=== PATIENT | male | born 1980 | race Caucasian/White ===

== ENCOUNTER 2017-03-29 18:18 | Emergency (ER) | payer OTHER ==
[~2017-03-29] VITALS: Ht 175.3 cm; Wt 91.8 kg
[~2017-03-29 18:18] MED LIST: ACET500T68 PO; IBUP400T18 PO
[2017-03-29 18:35] VITALS: BP 140/99
--- NOTE | 2017-03-29 18:36 | ED.ADGEN ---
Past History Past Medical History: No Pertinent History Past Surgical History: No Surgical History Alcohol Use: None Drug Use: None Adult General Chief Complaint Chief Complaint Finger laceration [facility] HPI Patient is a 37 year old male who presents with small laceration of the third finger on the right hand. He reached his hand in a box of fluorescent light bulbs and when the bulge is broken and received a laceration on the lateral aspect of his third digit of his right hand. He states his tetanus shot was updated 2015. Review of Systems Review of Systems Constitutional: Denies fever or chills [] Eyes: Denies change in visual acuity, redness, or eye pain [] HENT: Denies nasal congestion or sore throat [] Respiratory: Denies cough or shortness of breath [] Cardiovascular: No additional information not addressed in HPI [] GI: Denies abdominal pain, nausea, vomiting, bloody stools or diarrhea [] : Denies dysuria or hematuria [] Musculoskeletal: Denies back pain or joint pain [] Integument: Denies rash or skin lesions, positive for laceration of the right third digit of hand Neurologic: Denies headache, focal weakness or sensory changes [] Endocrine: Denies polyuria or polydipsia [] Allergies Allergies Allergies Coded Allergies Type Severity Reaction Last Updated Verified pertussis vaccine,fluid Allergy Unknown 09/01/14 No Physical Exam Physical Exam Constitutional: Well developed, well nourished, no acute distress, non-toxic appearance. [] HENT: Normocephalic, atraumatic, bilateral external ears normal, oropharynx moist, no oral exudates, nose normal. [] Eyes: PERRLA, EOMI, conjunctiva normal, no discharge. [] Neck: Normal range of motion, no tenderness, supple, no stridor. [] Cardiovascular:Heart rate regular rhythm, no murmur [] Lungs & Thorax: Bilateral breath sounds clear to auscultation [] Abdomen: Bowel sounds normal, soft, no tenderness, no masses, no pulsatile masses. [] Skin: Warm, dry, no erythema, no rash. 1 cm laceration on the lateral aspect of the third digit on the right hand Back: No tenderness, no CVA tenderness. [] Extremities: No tenderness, no cyanosis, no clubbing, ROM intact, no edema. [] Neurologic: Alert and oriented X 3, normal motor function, normal sensory function, no focal deficits noted. [] Psychologic: Affect normal, judgement normal, mood normal. [] Current Patient Data Vital Signs Vital Signs Date Time Temp Pulse Resp B/P (MAP) Pulse Ox O2 Delivery O2 Flow Rate FiO2 03/29/17 18:35 98.1 80 20 96 Room Air EKG EKG [] Radiology/Procedures Radiology/Procedures 3 views of the right hand did not show any foreign bodies, Fractures, dislocations, as interpreted by me. Course & Med Decision Making Course & Med Decision Making Pertinent Labs and Imaging studies reviewed. (See chart for details) She presented with a laceration. It was explored for foreign bodies and x-ray was obtained and do not appreciate any foreign bodies, his tetanus was updated within the last 5 years. Wound was closed with Dermabond patient is being discharged home with return precautions. Final Impression Final Impression Laceration of finger Problems: Dragon Disclaimer Dragon Disclaimer This electronic medical record was generated, in whole or in part, using a voice recognition dictation system. Laceration Repair Lac Repair Indication: S ratio repair Procedure: The patient was placed in the appropriate position and the area was then hibbaclens. The laceration was Dermabond. The wound area was then dressed with band aid. Total repaired wound length: 1 cm. The patient tolerated the procedure well. Complications: No complications. DEBBI QUINTANILLA MD Mar 29, 2017 18:36
--- NOTE | 2017-03-30 08:18 | RAD ---
Right finger radiographs History: Laceration to the right middle finger. Comparison: None. Findings: PA view of the right hand. Oblique and lateral views of the third digit (middle finger). No radiopaque foreign body is identified. No acute fracture or dislocation is seen. There is a small well-corticated ossific density along the volar aspect of the third middle phalangeal base, could represent old avulsion fracture. Impression: 1. No definite acute osseous abnormality identified. 2. Probable old avulsion fracture of the base of the third middle phalanx. 3. No radiopaque foreign body is seen.
== END 2017-03-29 19:13 | disposition home or self-care (01) ==
LOC: ER 18:18
DX: S61.212A Laceration without foreign body of right middle finger without damage to nail, initial encounter (principal); Z88.7 Allergy status to serum and vaccine; W25.XXXA Contact with sharp glass, initial encounter; Y93.89 Activity, other specified; Y99.8 Other external cause status; Y92.89 Other specified places as the place of occurrence of the external cause
CPT/HCPCS: 12001; 73140; 99284-25

== ENCOUNTER 2017-07-25 19:51 | Emergency (ER) | payer OTHER ==
[~2017-07-25] VITALS: Ht 172.7 cm; Wt 97.5 kg
[2017-07-25 19:52] VITALS: BP 139/100
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
[2017-07-26 22:08] LABS: HCV ANTIBODY <0.1 s/co ratio (0.0-0.9); HEP A IGM ABDY Negative (Negative)
== END 2017-07-25 20:32 | disposition home or self-care (01) ==
LOC: ER 19:51
DX: S61.231A Puncture wound without foreign body of left index finger without damage to nail, initial encounter (principal); Z77.21 Contact with and (suspected) exposure to potentially hazardous body fluids; Z88.7 Allergy status to serum and vaccine; W46.0XXA Contact with hypodermic needle, initial encounter; Y93.89 Activity, other specified; Y99.0 Civilian activity done for income or pay; Y92.89 Other specified places as the place of occurrence of the external cause
CPT/HCPCS: 36415; 80074; 86701; 86702; 86703; 87535; 99284

== ENCOUNTER 2018-02-27 20:23 | Emergency (ER) | payer OTHER ==
[~2018-02-27] VITALS: Ht 172.7 cm; Wt 91.8 kg
[2018-02-27] MEDS ORDERED: IBUPROFEN 800 MG TABLET. PO ONE (22:00)
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
[2018-02-27 23:40] VITALS: BP 159/91
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
[2018-02-28] MEDS ORDERED: ACETAMINOPHEN/CODEINE 300/30MG 4TABLET STARTPACK. PO ONE
--- NOTE | 2018-02-28 14:58 | RAD ---
KNEE LEFT 3V, HAND RIGHT 3V, ELBOW LEFT 2V History: INJURY, LEFT KNEE PAIN. Pain at the fifth digit of right hand. Elbow pain. Comparison: None are available 3 view left knee No acute fracture. No bone destruction. No dislocation. IMPRESSION: No acute fracture or dislocation. 3 view left elbow No evidence of acute fracture. No bone destruction. Joint spaces are intact. No significant soft tissue abnormality. IMPRESSION: No evidence of acute fracture or dislocation. 3 view left hand No evidence of an acute fracture. No aggressive bone destruction. No evidence of dislocation. Possible old fracture deformity of the fifth metacarpal. IMPRESSION: No acute fracture or dislocation. Electronically signed by: Benito Mota MD (02/28/2018 2:54 PM) [facility]
== END 2018-02-27 23:58 | disposition home or self-care (01) ==
LOC: ER 20:23
DX: S09.90XA Unspecified injury of head, initial encounter (principal); S83.92XA Sprain of unspecified site of left knee, initial encounter; S60.222A Contusion of left hand, initial encounter; S50.02XA Contusion of left elbow, initial encounter; E78.00 Pure hypercholesterolemia, unspecified; Z88.7 Allergy status to serum and vaccine; Y04.0XXA Assault by unarmed brawl or fight, initial encounter; Y93.89 Activity, other specified; Y99.8 Other external cause status; Y92.89 Other specified places as the place of occurrence of the external cause
CPT/HCPCS: 29505; 70450; 70486; 73070; 73130; 73562; 99284

== ENCOUNTER 2018-10-23 19:20 | Inpatient (IN) | payer BC, OTHER ==
[~2018-10-23] VITALS: Ht 172.7 cm; Wt 105.8 kg
--- NOTE | 2018-10-23 19:41 | PHYS DOC ---
Past History Past Medical History: Anxiety, High Cholesterol, Other Past Surgical History: Other Alcohol Use: Rarely Drug Use: None Adult General Chief Complaint Chief Complaint: CHEST PAIN HPI HPI 38-year-old male presents with chest pain. The patient has had intermittent chest pain described as a central pressure off and on all day. He had an episode at 1700 that was a 10 out of 10 pain. He is unsure excited how long it lasted but it improved over time. He second episode of equal intensity at 1800. It is now 1930 and the patient states his pain is a 5 out of 10. He did not take an aspirin at home. He is not on nitroglycerin. He was also mildly short of breath and had some nausea. The patient is supposed to be getting scheduled for a stress test with his PCP, but has not been scheduled yet. His last stress test was in when he 13 and it was reported to be unremarkable. Patient denies fever or chills. He has been feeling well other than this episode. Review of Systems Review of Systems Constitutional: Denies fever or chills [] Eyes: Denies change in visual acuity, redness, or eye pain [] HENT: Denies nasal congestion or sore throat [] Respiratory: shortness of breath [] Cardiovascular: No additional information not addressed in HPI [] GI: Nausea. Denies abdominal pain, vomiting, bloody stools or diarrhea [] : Denies dysuria or hematuria [] Musculoskeletal: Denies back pain or joint pain [] Integument: Denies rash or skin lesions [] Neurologic: Denies headache, focal weakness or sensory changes [] Endocrine: Denies polyuria or polydipsia [] All other systems were reviewed and found to be within normal limits, except as documented in this note. Current Medications Current Medications Current Medications Medications (Trade) Dose Ordered Sig/Navdeep Start Time Stop Time Status Last Admin Dose Admin Aspirin (Children'S Aspirin) 324 mg 1X ONCE 10/23/18 19:45 10/23/18 19:46 UNV Allergies Allergies Allergies Coded Allergies Type Severity Reaction Last Updated Verified pertussis vaccine,fluid Allergy Unknown 09/01/14 No Physical Exam Physical Exam Constitutional: Well developed, well nourished, no acute distress, non-toxic appearance. [] HENT: Normocephalic, atraumatic, bilateral external ears normal, oropharynx moist, no oral exudates, nose normal. [] Eyes: PERRLA, EOMI, conjunctiva normal, no discharge. [] Neck: Normal range of motion, no tenderness, supple, no stridor. [] Cardiovascular:Heart rate regular rhythm, no murmur [] Lungs & Thorax: Bilateral breath sounds clear to auscultation [] Abdomen: Bowel sounds normal, soft, no tenderness, no masses, no pulsatile masses. [] Skin: Warm, dry, no erythema, no rash. [] Back: No tenderness, no CVA tenderness. [] Extremities: No tenderness, no cyanosis, no clubbing, ROM intact, no edema. [] Neurologic: Alert and oriented X 3, normal motor function, normal sensory function, no focal deficits noted. [] Psychologic: Affect normal, judgement normal, mood normal. [] Current Patient Data Vital Signs Vital Signs Date Time Temp Pulse Resp B/P (MAP) Pulse Ox O2 Delivery O2 Flow Rate FiO2 10/23/18 19:20 98.5 64 20 99 Room Air EKG EKG Sinus rhythm, rate 61, normal axis, no ST elevations or depressions.[] Radiology/Procedures Radiology/Procedures [] Impressions: Preliminary interpretation: Chest x-ray with no acute findings. EXAM: Chest, single view. HISTORY: Chest pain. COMPARISON: None. FINDINGS: A frontal view of the chest is obtained. There is no infiltrate, pleural effusion or pneumothorax. The heart is normal in size. IMPRESSION: No acute pulmonary finding. Electronically signed by: Geovanna Fernandez MD (10/23/2018 10:31 PM) [facility] DICTATED AND SIGNED BY: GEOVANNA FERNANDEZ MD DATE: 10/23/18 279 CC: MANI HAGAN DO; LUIS FELIPE SCHWARTZ; JOSUE ALCALA MD Course & Med Decision Making Course & Med Decision Making Pertinent Labs and Imaging studies reviewed. (See chart for details) Patient's chest x-ray is unremarkable. His labs are unremarkable except for an elevated glucose of 231. His troponin is negative. His EKG is unremarkable. Given the patient's story and what appears to be a progressive nature of chest pain for several months, I believe it is most prudent to admit the patient. I discussed this with Dr. Alcala and he has accepted the patient for admission. I discussed this with the patient and he is in agreement. [] Dragon Disclaimer Dragon Disclaimer This electronic medical record was generated, in whole or in part, using a voice recognition dictation system. Departure Departure: Referrals: LUIS FELIPE SCHWARTZ (PCP) MANI HAGAN DO Oct 23, 2018 19:40
[2018-10-23] MEDS ORDERED: ASPIRIN 81 MG TAB.CHEW PO ONE (19:45)
[2018-10-23 19:56] LABS: BASO % 1 % (0-3); EOS % 1 % (0-3); HEMATOCRIT 47.2 % (39.0-53.0); HEMOGLOBIN 16.4 g/dL (13.0-17.5); LYMPH # 1.3 x10^3/uL (1.0-4.8); LYMPH % 29 % (24-48); MEAN CORPUSCULAR HEMOGLOBIN 31 pg (25-35); MEAN CORPUSCULAR HGB CONC 35 g/dL (31-37); MEAN CORPUSCULAR VOLUME 89 fL (79-100); MONO # 0.6 x10^3/uL (0.0-1.1); MONO % 14 % (0-9); NEUT # 2.5 x10^3uL (1.8-7.7); NEUT % 56 % (31-73); PLATELET COUNT 197 x10^3/uL (140-400); RED BLOOD COUNT 5.32 x10^6/uL (4.30-5.70); RED CELL DISTRIBUTION WIDTH 12.7 % (11.5-14.5); WHITE BLOOD COUNT 4.4 x10^3/uL (4.0-11.0)
[2018-10-23 20:14] LABS: ALBUMIN/GLOBULIN RATIO 1.1 (1.0-1.7); CALCIUM 8.5 mg/dL (8.5-10.1); GFR 82.8; POTASSIUM 3.5 mmol/L (3.5-5.1); TOTAL BILIRUBIN 0.6 mg/dL (0.2-1.0); TOTAL PROTEIN 7.5 g/dL (6.4-8.2)
[2018-10-23] MEDS ORDERED: MORPHINE SULFATE 2 MG/ML DISP.SYRIN. IV PRN (20:45)
[2018-10-23] MEDS ORDERED: NITROGLYCERIN SUBLINGUAL 0.4 MG BOTTLE OF 25. SL PRN (20:45)
[2018-10-23] MEDS ORDERED: ONDANSETRON PF 4 MG/2 ML VIAL. IV PRN (20:45)
[2018-10-23] MEDS ORDERED: IV NORMAL SALINE 1,000ML 1,000 ML IV ONE (21:15)
--- NOTE | 2018-10-23 22:15 | NUR ---
Admission: The patient, ERIC ESPINAL, 38 y/o, M admitted by JOSUE ALBERT MD, was given written information regarding hospital policies, unit procedures and contact persons. Pt arrived to room 113 via [facility], accompanied by [facility] and nursing sup. Pt self-transferred from [place] to bed, steady gait noted. Pt A/Ox3, reports mid-sternal CP began today around 1130 and continued intermittently through this evening, describes as a pressure/squeezing. Around 1730, began radiating down left arm with numbness to fingers along with increased SOA, so pt left work and drove to the ED for treatment. Pt reports he has had similar episodes in the past and was scheduled for an outpatient stress test but had to cancel and has yet to reschedule. Pt lives in [place], but works in town at the local [employer]. Pt received nitro SL x1 in ED, pain resolved. Pt now c/o mid-sternal CP returning, rates 7/10. Denies current SOA. Given PRN morphine per order. Placed on telemetry, showing sinus iftikhar with HR in the upper 50's. Will consult cardiology in AM. Discussed POC with patient and felix, who is at bedside, both V/U. Call light in reach. Valuables were checked and logged. Left in room with patient.
[2018-10-23 22:24] VITALS: BP 121/75
--- NOTE | 2018-10-23 22:34 | RAD ---
EXAM: Chest, single view. HISTORY: Chest pain. COMPARISON: None. FINDINGS: A frontal view of the chest is obtained. There is no infiltrate, pleural effusion or pneumothorax. The heart is normal in size. IMPRESSION: No acute pulmonary finding. Electronically signed by: Geovanna Gutiérrez MD (10/23/2018 10:31 PM) [facility]
[2018-10-23] MEDS ORDERED: PRAV20TA2 PO (22:52)
[2018-10-24] VITALS (7 sets, daily range): BP systolic 112–146; BP diastolic 70–94
[2018-10-24] MEDS ORDERED: MAG HYDROX/AL HYDROX/SIMETH 30 ML ORAL.SUSP PO ONE (02:00)
[2018-10-24 07:31] LABS: HEMATOCRIT 46.4 % (39.0-53.0); HEMOGLOBIN 15.9 g/dL (13.0-17.5); RED BLOOD COUNT 5.19 x10^6/uL (4.30-5.70); RED CELL DISTRIBUTION WIDTH 12.9 % (11.5-14.5); WHITE BLOOD COUNT 4.5 x10^3/uL (4.0-11.0)
[2018-10-24 07:40] LABS: CALCIUM 7.9 mg/dL (8.5-10.1); CREATININE 0.9 mg/dL (0.7-1.3); GFR 93.5
--- NOTE | 2018-10-24 08:50 | NUR ---
NURSING NOTE CONSULT CONSULT CALLED TO DR HOU OFFICE [phone]. CARLOS IS HERE IN THE BUILDING. FREDA SWAIN .
--- NOTE | 2018-10-24 08:55 | PDOC2 ---
CONSULT Date of Admission DATE: 10/24/18 TIME: 08:48 Reason for Consult: cp, bradycardia Problem List Problems Medical Problems: (1) Chest pain Status: Acute (2) Hyperglycemia Status: Acute History of Present Illness Mr Salvador is a 38 year old male who presents with complaints of chest pain that started while watching TV yesterday afternoon. He describes midsternal pain lasting about 5 minutes and occurring off and on all afternoon. He denies any radiation but does report associated nausea. He reports dyspnea with walking up stairs. He denies any change in symptoms with deep inspiration, position or exertion. He reports having had a stress test that was normal about 3 years ago. He also reports seeing his PCP in May for some left sided chest pain that was the same in quality and having a stress test ordered at [facility] which he has not yet completed. He reports occasional lightheadedness on standing but denies any pre syncope or syncope. He denies any normal dyspnea on exertion and does PT testing for his job at the [employer] every 6 months. He denies any palpitations but has been noted to be bradycardic since on telemetry. He denies any congestive symptoms but does report a dry, non productive cough for a few days. He denies fever or chills. Cardiovascular: HTN (borderline), hyperipidemia Pulmonary: No pertinent hx GI: No pertinent hx, Other (gallstones) Heme/Onc: No pertinent hx Hepatobiliary: No pertinent hx Psych: Anxiety, Other (ADHD) Musculoskeletal: No pertinent hx Rheumatologic: No pertinent hx Infectious disease: No pertinent hx ENT: No pertinent hx Renal/: No pertinent hx Endocrine: No pertinent hx Dermatology: No pertinent hx Past Surgical History breast reduction, vasectomy Family History premature coronary disease and CVA Social History non smoker, no significant ETOH, no illicit drugs Current Medications Current Medications Aspirin (Children'S Aspirin) 324 mg 1X ONCE PO Last administered on at 19:41; Start 10/23/18 at 19:45; Stop 10/23/18 at 19:51; Status DC Ondansetron HCl (Zofran) 4 mg PRN Q4HRS PRN IV NAUSEA/VOMITING; Start at 20:45; Stop 10/24/18 at 20:44 Morphine Sulfate (Morphine 2mg Syringe) 2 mg PRN Q2HR PRN IV PAIN Last administered on 10/23/18at 23:10; Start 10/23/18 at 20:45; Stop 10/24/18 at 20 :44 Nitroglycerin (Nitrostat) 0.4 mg PRN Q5MIN PRN SL CHEST PAIN Last administered on 10/23/18at 21:19; Start 10/23/18 at 20:45; Stop 10/24/18 at 20:44 Sodium Chloride 1,000 ml @ 1,000 mls/hr 1X ONCE IV Last administered on 10/23at 21:20; Start 10/23/18 at 21:15; Stop 10/23/18 at 22:14; Status DC Al Hydroxide/Mg Hydroxide (Mylanta Plus Xs) 30 ml 1X ONCE PO Last administered on 10/24/18at 01:32; Start 10/24/18 at 02:00; Stop 10/24/18 at 02 :02; Status DC Active Scripts Active Reported Pravastatin Sodium 20 Mg Tablet 20 Mg PO HS Allergies: Coded Allergies: pertussis vaccine,fluid (Unverified Allergy, Unknown, 09/01/14) Review of System as per HPI or negative General: Alert, Oriented X3, Cooperative, No acute distress HEENT: Atraumatic, EOMI, Mucous membr. moist/pink, Other (No carotid bruits) Lungs: Clear to auscultation, Normal air movement Heart: Normal S1, Normal S2, Other (bradycardic, no significant murmurs, no gallops, clicks or rubs) Abdomen: Normal bowel sounds, Soft, No tenderness Extremities: No cyanosis, No edema, Normal pulses Skin: No rashes, No breakdown Neuro: Normal speech, Strength at 5/5 X4 ext Psych/Mental Status: Mental status NL, Mood NL VITALS Vital Signs Date Time Temp Pulse Resp B/P (MAP) Pulse Ox O2 Delivery O2 Flow Rate FiO2 10/24/18 07:40 Room Air 10/24/18 01:12 97.8 61 18 135/79 (97) 98 Labs Laboratory Tests Test 10/23/18 19:35 10/23/18 23:45 10/24/18 02:40 10/24/18 07:10 White Blood Count 4.4 x10^3/uL (4.0-11.0) 4.5 x10^3/uL (4.0-11.0) Red Blood Count 5.32 x10^6/uL (4.30-5.70) 5.19 x10^6/uL (4.30-5.70) Hemoglobin 16.4 g/dL (13.0-17.5) 15.9 g/dL (13.0-17.5) Hematocrit 47.2 % (39.0-53.0) 46.4 % (39.0-53.0) Mean Corpuscular Volume 89 fL (79-100) 89 fL (79-100) Mean Corpuscular Hemoglobin 31 pg (25-35) 31 pg (25-35) Mean Corpuscular Hemoglobin Concent 35 g/dL (31-37) 34 g/dL (31-37) Red Cell Distribution Width 12.7 % (11.5-14.5) 12.9 % (11.5-14.5) Platelet Count 197 x10^3/uL (140-400) 194 x10^3/uL (140-400) Neutrophils (%) (Auto) 56 % (31-73) Lymphocytes (%) (Auto) 29 % (24-48) Monocytes (%) (Auto) 14 % (0-9) Eosinophils (%) (Auto) 1 % (0-3) Basophils (%) (Auto) 1 % (0-3) Neutrophils # (Auto) 2.5 x10^3uL (1.8-7.7) Lymphocytes # (Auto) 1.3 x10^3/uL (1.0-4.8) Monocytes # (Auto) 0.6 x10^3/uL (0.0-1.1) Eosinophils # (Auto) 0.0 x10^3/uL (0.0-0.7) Basophils # (Auto) 0.0 x10^3/uL (0.0-0.2) Sodium Level 140 mmol/L (136-145) 140 mmol/L (136-145) Potassium Level 3.5 mmol/L (3.5-5.1) 4.0 mmol/L (3.5-5.1) Chloride Level 103 mmol/L (98-107) 106 mmol/L (98-107) Carbon Dioxide Level 24 mmol/L (21-32) 23 mmol/L (21-32) Anion Gap 13 (6-14) 11 (6-14) Blood Urea Nitrogen 19 mg/dL (8-26) 18 mg/dL (8-26) Creatinine 1.0 mg/dL (0.7-1.3) 0.9 mg/dL (0.7-1.3) Estimated GFR (Cockcroft-Gault) 82.8 93.5 BUN/Creatinine Ratio 19 (6-20) Glucose Level 231 mg/dL (70-99) 202 mg/dL (70-99) Calcium Level 8.5 mg/dL (8.5-10.1) 7.9 mg/dL (8.5-10.1) Total Bilirubin 0.6 mg/dL (0.2-1.0) Aspartate Amino Transf (AST/SGOT) 24 U/L (15-37) Alanine Aminotransferase (ALT/SGPT) 43 U/L (16-63) Alkaline Phosphatase 92 U/L (46-116) Troponin I Quantitative < 0.017 ng/mL (0-0.055) < 0.017 ng/mL (0-0.055) < 0.017 ng/mL (0-0.055) Total Protein 7.5 g/dL (6.4-8.2) Albumin 4.0 g/dL (3.4-5.0) Albumin/Globulin Ratio 1.1 (1.0-1.7) Images EKG - sinus rhythm, 1st degree AVB, leftward axis, no acute ischemic changes CXR - IMPRESSION: No acute pulmonary finding. Assessment/Plan 1. chest pain, atyupical - Mau negative, EKG without acute changes. check echo , check lipids, aspirin daily, no beta desmond secondary to bradycardia 2. bradycardia - 6 min walk for chronotropic response, check TSH 3. hypertension stage 1, - check echo. add ACEI if pressure remains elevated or LVH on echo 4. hyperlipidemia - check lipids, add statin as indicated 5. hyperlipidemia - check AIC 6. Anxiety - per pcp CARLOS GAXIOLA APRN Oct 24, 2018 08:55
--- NOTE | 2018-10-24 10:47 | NUR ---
NURSING NOTE 6 MIN WALK. RESTING HR 53 O2 98% 1 MIN HR 80 O2 95% 2 MIN HR 77 O2 96% 3 MIN HR 77 O2 96% 4 MIN HR 81 O2 97% 5 MIN HR 75 O2 97% 6 MIN HR 83 O2 96% RESTING 1 MIN POST WALK HR 64 O2 97%
[2018-10-24 20:12] LABS: HEMOGLOBIN A1C 7.3 % (4.8-5.6)
[2018-10-24] MEDS ORDERED: PRAVASTATIN 20 MG TABLET. PO SCH (21:00)
[2018-10-25 05:47] VITALS: BP 119/81
--- NOTE | 2018-10-25 07:31 | CARD ---
MR#: [id number] Date of Study: 10/24/2018 Ordering Physician: CARLOS GAXIOLA, Referring Physician: JOSUE ALBERT, Tech: Shaneka Valderrama APPROVED REPORT EXAM: Two-dimensional and M-mode echocardiogram with Doppler and color Doppler. Other Information Quality : AverageHR: 61bpm INDICATION Chest Pain RISK FACTORS Hyperlipidemia 2D DIMENSIONS RVDd2.8 (2.9-3.5cm)Left Atrium(2D)3.2 (1.6-4.0cm) IVSd1.4 (0.7-1.1cm)Aortic Root(2D)3.6 (2.0-3.7cm) LVDd4.6 (3.9-5.9cm)LVOT Diameter2.2 (1.8-2.4cm) PWd1.2 (0.7-1.1cm)LVDs2.8 (2.5-4.0cm) FS (%) 39.1 %SV66.8 ml LVEF(%)69.6 (>50%) Aortic Valve AoV Peak Nate.136.7cm/sAoV VTI29.8cm AO Peak GR.7.5mmHgLVOT Peak Nate.99.3cm/s LVOT VTI 20.15cmAO Mean GR.5mmHg KARISSA (VMAX)2.27yt0NUG (VTI)2.57cm2 Mitral Valve MV E Tuivbspk30.6cm/sMV DECEL EBQE690wt MV A Ftqzltkw03.4cm/sE/A Ratio1.3 Pulmonary Valve PV Peak Usjktgqk83.3cm/sPV Peak Grad.3mmHg Tricuspid Valve TR P. Cglmbnqv429dw/sRAP YGNBOMRW5puQw TR Peak Gr.09twQoPPNE79gdVg Pulmonary Vein S1 Yjnquszs66.6cm/sD2 Cakthoox09.8cm/s LEFT VENTRICLE The left ventricle is normal size. There is moderate concentric left ventricular hypertrophy. The lef t ventricular systolic function is normal. The Ejection Fraction is 55-60%. There is normal LV segmen cristofer wall motion. RIGHT VENTRICLE The right ventricle is normal size. There is normal right ventricular wall thickness. ATRIA The left atrium size is normal. The right atrium is borderline dilated. The interatrial septum is int act with no evidence for an atrial septal defect or patent foramen ovale as noted on 2-D or Doppler i maging. AORTIC VALVE The aortic valve is normal in structure and function. Doppler and Color Flow revealed trace aortic re gurgitation. There is no significant aortic valvular stenosis. MITRAL VALVE The mitral valve is normal in structure and function. There is no evidence of mitral valve prolapse. There is no mitral valve stenosis. Doppler and Color Flow revealed no mitral valve regurgitation note d. TRICUSPID VALVE The tricuspid valve is normal in structure and function. Doppler and Color Flow revealed trace tricus pid regurgitation. There is no tricuspid valve stenosis. PULMONIC VALVE The pulmonic valve is not well visualized. Doppler and Color Flow revealed trace pulmonic valvular re gurgitation. GREAT VESSELS The aortic root is normal in size. Normal pulmonary venous flow (Doppler). The IVC is normal in size and collapses >50% with inspiration. PERICARDIAL EFFUSION There is no evidence of significant pericardial effusion. Critical Notification Critical Value: No <Conclusion> The left ventricular systolic function is normal. The Ejection Fraction is 55-60%. There is normal LV segmental wall motion. Trace tricuspid regurgitation. There is no evidence of significant pericardial effusion. Signed by : Dimitrios Fleming, Electronically Approved : 10/25/2018 07:29:20
[2018-10-25] MEDS ORDERED: ASPIRIN ENTERIC COATED 81 MG TABLET.DR. PO SCH (08:00)
--- NOTE | 2018-10-25 08:57 | PDOC ---
PROGRESS NOTES Diagnosis Problem Problems Medical Problems: (1) Chest pain Status: Acute (2) Hyperglycemia Status: Acute Assessment Problems Medical Problems: (1) Chest pain Status: Acute (2) Hyperglycemia Status: Acute 1. chest pain, atyupical - Mau negative, EKG without acute changes. normal EF and wall motion. plan for outpatient stress testing. 2. bradycardia - mild. 6 min walk with HR response from 77 - 85bpm. outpatient event monitor. 3. hypertension stage 1, - mod LVH by echo. add ACEI. 4. hyperlipidemia - fenofibrate and aggressive control of DM. 5. DM - A1c 7.3 - per PCP 6. Anxiety - per pcp Objective Vital Signs Date Time Temp Pulse Resp B/P (MAP) Pulse Ox O2 Delivery O2 Flow Rate FiO2 10/25/18 08:00 Room Air 10/25/18 05:47 97.8 54 16 119/81 (94) 99 Intake and Output 10/25/18 07:01 Intake Total 1710 ml Output Total 502 ml Balance 1208 ml Intake Oral 1710 ml Output Urine Total 500 ml Stool Total 2 ml # Voids 5 Review of Relevant I have reviewed the following items carmen (where applicable) has been applied. Labs Laboratory Tests Test 10/23/18 19:35 10/23/18 23:45 10/24/18 02:40 10/24/18 07:10 White Blood Count 4.4 x10^3/uL (4.0-11.0) 4.5 x10^3/uL (4.0-11.0) Red Blood Count 5.32 x10^6/uL (4.30-5.70) 5.19 x10^6/uL (4.30-5.70) Hemoglobin 16.4 g/dL (13.0-17.5) 15.9 g/dL (13.0-17.5) Hematocrit 47.2 % (39.0-53.0) 46.4 % (39.0-53.0) Mean Corpuscular Volume 89 fL (79-100) 89 fL (79-100) Mean Corpuscular Hemoglobin 31 pg (25-35) 31 pg (25-35) Mean Corpuscular Hemoglobin Concent 35 g/dL (31-37) 34 g/dL (31-37) Red Cell Distribution Width 12.7 % (11.5-14.5) 12.9 % (11.5-14.5) Platelet Count 197 x10^3/uL (140-400) 194 x10^3/uL (140-400) Neutrophils (%) (Auto) 56 % (31-73) Lymphocytes (%) (Auto) 29 % (24-48) Monocytes (%) (Auto) 14 % (0-9) Eosinophils (%) (Auto) 1 % (0-3) Basophils (%) (Auto) 1 % (0-3) Neutrophils # (Auto) 2.5 x10^3uL (1.8-7.7) Lymphocytes # (Auto) 1.3 x10^3/uL (1.0-4.8) Monocytes # (Auto) 0.6 x10^3/uL (0.0-1.1) Eosinophils # (Auto) 0.0 x10^3/uL (0.0-0.7) Basophils # (Auto) 0.0 x10^3/uL (0.0-0.2) Sodium Level 140 mmol/L (136-145) 140 mmol/L (136-145) Potassium Level 3.5 mmol/L (3.5-5.1) 4.0 mmol/L (3.5-5.1) Chloride Level 103 mmol/L (98-107) 106 mmol/L (98-107) Carbon Dioxide Level 24 mmol/L (21-32) 23 mmol/L (21-32) Anion Gap 13 (6-14) 11 (6-14) Blood Urea Nitrogen 19 mg/dL (8-26) 18 mg/dL (8-26) Creatinine 1.0 mg/dL (0.7-1.3) 0.9 mg/dL (0.7-1.3) Estimated GFR (Cockcroft-Gault) 82.8 93.5 BUN/Creatinine Ratio 19 (6-20) Glucose Level 231 mg/dL (70-99) 202 mg/dL (70-99) Calcium Level 8.5 mg/dL (8.5-10.1) 7.9 mg/dL (8.5-10.1) Total Bilirubin 0.6 mg/dL (0.2-1.0) Aspartate Amino Transf (AST/SGOT) 24 U/L (15-37) Alanine Aminotransferase (ALT/SGPT) 43 U/L (16-63) Alkaline Phosphatase 92 U/L (46-116) Troponin I Quantitative < 0.017 ng/mL (0-0.055) < 0.017 ng/mL (0-0.055) < 0.017 ng/mL (0-0.055) Total Protein 7.5 g/dL (6.4-8.2) Albumin 4.0 g/dL (3.4-5.0) Albumin/Globulin Ratio 1.1 (1.0-1.7) Hemoglobin A1c 7.3 % (4.8-5.6) Triglycerides Level 323 mg/dL (0-150) Cholesterol Level 147 mg/dL (0-200) LDL Cholesterol, Calculated 58 mg/dL (0-100) VLDL Cholesterol, Calculated 64 mg/dL (0-40) Non-HDL Cholesterol Calculated 122 mg/dL (0-129) HDL Cholesterol 25 mg/dL (40-60) Cholesterol/HDL Ratio 5.0 Test 10/24/18 14:19 Glucose (Fingerstick) 136 mg/dL (70-99) Medications Current Medications Aspirin (Children'S Aspirin) 324 mg 1X ONCE PO Last administered on at 19:41; Start 10/23/18 at 19:45; Stop 10/23/18 at 19:51; Status DC Ondansetron HCl (Zofran) 4 mg PRN Q4HRS PRN IV NAUSEA/VOMITING; Start at 20:45; Stop 10/24/18 at 20:44; Status DC Morphine Sulfate (Morphine 2mg Syringe) 2 mg PRN Q2HR PRN IV PAIN Last administered on 10/23/18at 23:10; Start 10/23/18 at 20:45; Stop 10/24/18 at 20 :44; Status DC Nitroglycerin (Nitrostat) 0.4 mg PRN Q5MIN PRN SL CHEST PAIN Last administered on 10/23/18at 21:19; Start 10/23/18 at 20:45; Stop 10/24/18 at 20:44; Status DC Sodium Chloride 1,000 ml @ 1,000 mls/hr 1X ONCE IV Last administered on 10/23at 21:20; Start 10/23/18 at 21:15; Stop 10/23/18 at 22:14; Status DC Al Hydroxide/Mg Hydroxide (Mylanta Plus Xs) 30 ml 1X ONCE PO Last administered on 10/24/18at 01:32; Start 10/24/18 at 02:00; Stop 10/24/18 at 02 :02; Status DC Aspirin (Aspirin Enteric Coated) 81 mg DAILYWBKFT PO Last administered on 10/25at 08:14; Start 10/25/18 at 08:00 Pravastatin Sodium (Pravachol) 20 mg HS PO Last administered on 10/24/18at 21: 23; Start 10/24/18 at 21:00 Active Scripts Active Reported Pravastatin Sodium 20 Mg Tablet 20 Mg PO HS Vitals/I & O Vital Sign - Last 24 Hours 10/24/18 10/24/18 10/24/18 10/24/18 10:15 15:03 19:25 20:00 Temp 97.8 98.3 98.4 Pulse 52 61 60 Resp 18 18 18 B/P (MAP) 120/74 (89) 121/76 (91) 137/90 (106) Pulse Ox 98 97 97 O2 Delivery Room Air Room Air Room Air Room Air 10/24/18 10/25/18 10/25/18 23:04 05:47 08:00 Temp 98.0 97.8 Pulse 61 54 Resp 18 16 B/P (MAP) 124/79 (94) 119/81 (94) Pulse Ox 96 99 O2 Delivery Room Air Room Air Room Air Intake and Output 10/24/18 10/24/18 10/25/18 15:01 23:01 07:01 Intake Total 0 ml 800 ml 910 ml Output Total 500 ml 2 ml Balance 0 ml 300 ml 908 ml CARLOS GAXIOLA APRN Oct 25, 2018 08:57
[2018-10-25] MEDS ORDERED: LISINOPRIL 2.5 MG TABLET PO SCH (09:00)
[2018-10-25] MEDS ORDERED: FENOFIBRATE NANOCRYSTALLIZED 145 MG TABLET PO SCH (09:00)
[2018-10-25] MEDS ORDERED: LISI2.5T PO (09:22)
[2018-10-25] MEDS ORDERED: FENO145T30 PO (09:22)
[2018-10-25] MEDS ORDERED: ASPI-630 PO (09:22)
--- NOTE | 2018-10-25 09:43 | NUR ---
NURSING NOTE DISCHARGE PT DISCHARGED TO HOME W/ SELF CARE AT 0942 ACCOMPANIED BY . WRITTEN AND VERBAL INSTRUCTIONS GIVEN TO PT. WRITTEN SCRIPTS GIVEN TO PT. FOLLOW UP INSTRUCTIONS GIVEN TO PT. FREDA SWAIN.
--- NOTE | 2018-10-25 19:37 | EKG ---
[address] [address] Test Date: 2018-10-23 Test Time: 19:26:53 Pat Name: ERIC ESPINAL Department: Room: 113 A Gender: M Executive Admin: : [id number] Requested By: MANI HAGAN Order Number: [id number] Reading MD: Nir Calzada Measurements Intervals [place] Rate: 61 P: 32 OK: 214 QRS: -3 QRSD: 96 T: 16 QT: 412 QTc: 416 Interpretive Statements SINUS RHYTHM NONSPECIFIC ST-T WAVE CHANGES. Electronically Signed On 10-30-2018 11:22:51 SENIOR SALES MANAGER by Nir Calzada
--- NOTE | 2018-10-26 16:10 | HP ---
ADMIT DATE: 10/25/2018 HISTORY OF PRESENT ILLNESS: The patient is a 38-year-old male patient, who came to the Emergency Room complaining of chest pain that started while watching TV. Did for admission he described his pain as midsternal, lasting about 5 minutes, occurring off and on all afternoon. He denies any radiation. Does report associated nausea, some dyspnea with walking. Denied any changes in symptoms with deep inspiration, position or exertion. He reports having a stress test was done about 3 years ago that was normal. He was seen his primary care physician with some left-sided chest pain that was the same quality and having stress test ordered at [facility], which has not yet completed. He reports occasional episodes of lightheadedness on standing, but denies any syncope. Denied any dyspnea on exertion and does physical testing for his job at the [employer] every 6 months. He denied any palpitation, but was noted to be bradycardic. He denied any congestive symptoms and was evaluated in the Emergency Room. His first set of cardiac enzymes showed troponin to be less than 0.017. He was admitted to do 2 more sets of cardiac enzyme to check his lipid profile. His blood sugar was also found to be high and hemoglobin A1c was ordered and we did consult the Cardiology to evaluate and treat. PAST MEDICAL HISTORY: Significant for hypertension, hyperlipidemia, probably type 2 diabetes, anxiety and attention hyperactivity disorder. PAST SURGICAL HISTORY: Significant for breast reduction surgery and vasectomy. FAMILY HISTORY: Significant for premature coronary artery disease and CVA. SOCIAL HISTORY: He is nonsmoker. He does not drink alcohol or use any recreational drugs. 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 ALLERGIES: He is allergic to PERTUSSIS VACCINES. MEDICATIONS: He is currently on following medications: He is on fenofibrate 145 mg once a day, pravastatin 20 mg at bedtime, lisinopril 2.5 mg once a day and aspirin 81 mg once a day. PHYSICAL EXAMINATION: GENERAL: On admission the patient looked well and was clearly in no apparent respiratory distress. No pallor, jaundice or cyanosis. No lymphadenopathy, no thyromegaly. No jugular venous distension. No limb edema. VITAL SIGNS: His heart rate was 64, blood pressure was 123/85, temperature was 98.5, respiratory rate 20, and oxygen saturation was 99% on room air. HEAD, EYES, EARS, NOSE, AND THROAT: Showed normocephalic, atraumatic. NECK: Supple. HEART: Showed normal first and second heart sounds. No gallop, rub or murmur. CHEST: Clear to auscultation. No crepitation or rhonchi. ABDOMEN: Distended, soft, nontender. NEUROLOGIC: He was awake, alert, responding appropriately. All cranial nerves intact. EXTREMITIES: He moves extremities without difficulty. He ambulates without assistance or assistive devices. LABORATORY DATA: On admission showed a serum sodium 140, potassium 3.5, chloride 103, bicarbonate 24, anion gap of 13, BUN 19, creatinine 1, estimated GFR was 82 mL per minute. His glucose was 231, calcium was 8.5. Total bilirubin, AST, ALT, alkaline phosphatase were normal. His first troponin was less than 0.017. Total protein 7.5, albumin was 4. His white cell count was 4500, hemoglobin 16, hematocrit 47, MCV 89 and platelet count of 196,000. ASSESSMENT AND PLAN: The patient was admitted to do 2 more sets of cardiac enzyme to check a fasting lipid profile and consult the Cardiology team. His blood sugar was noted to be high, so we will check also Accu-Cheks before meals and bedtime and also hemoglobin A1c. JOSUE ALBERT MD DR: GRZEGORZ/kristopher JOB#: [id number] / [id number]
--- NOTE | 2018-10-26 16:32 | DS ---
DATE OF DISCHARGE: 10/25/2018 HISTORY OF PRESENT ILLNESS: The patient is a 38-year-old male patient who came in with somewhat atypical chest pain. He has had 3 sets of cardiac enzymes that ruled out myocardial infarction. His EKG was unremarkable. He apparently has had an echocardiogram done, which basically showed that his left ventricular systolic function is normal, ejection fraction is 55-60%. There is normal left ventricular segmental wall motion, trace tricuspid regurgitation, no evidence of significant pericardial effusion. The patient was discharged home to follow with his primary care physician regarding his elevated blood sugar. He needs to be started on oral hypoglycemic agent. PHYSICAL EXAMINATION: GENERAL: On the day of discharge, the patient looked well and was clearly in no apparent respiratory distress. VITAL SIGNS: His heart rate was 54, blood pressure was 119/81, temperature was 97.8, respiratory rate 16, and oxygen saturation was 99%. The rest of clinical examination is unremarkable, has not really changed. LABORATORY DATA: Stable and unremarkable. He was discharged home to continue on aspirin 81 mg once a day, fenofibrate 145 mg once a day, lisinopril 2.5 mg once a day, pravastatin sodium 20 mg at bedtime. He should follow with his primary care physician for his elevated blood sugar and high hemoglobin A1c. JOSUE ALBERT MD DR: GRZEGORZ/kristopher JOB#: [id number] / [id number]
--- NOTE | 2018-10-26 21:12 | PN ---
DATE: 10/25/2018 SUBJECTIVE: The patient was admitted with chest pain, somewhat atypical. He has 3 sets of cardiac enzymes that were negative and EKG showed no changes. The patient is known to have hypertension, hyperlipidemia and his hemoglobin A1c was 7.3%. The patient has an echocardiogram scheduled and decision obviously will be made once the echocardiogram becomes available. OBJECTIVE: GENERAL: On examining him, he looked well and was clearly in no apparent respiratory distress. VITAL SIGNS: His heart rate was 60, blood pressure was 137/90, temperature was 98.4, respiratory rate was 18 and oxygen saturation was 97%. The rest of clinical examination is unremarkable. ASSESSMENT AND PLAN: 1. Chest pain, atypical. He had 3 sets of cardiac enzymes that were negative. 2. Bradycardia, however, heart rate response to exercise. 3. Hypertension, seems to be reasonably controlled. 4. Hyperlipidemia, also seems to be reasonably controlled. 5. Type 2 diabetes with hemoglobin A1c of 7.3. 6. We will await echocardiogram and decide on further management accordingly. JOSUE ALBERT MD DR: GRZEGORZ/kristopher JOB#: [id number] / [id number]
== END 2018-10-25 09:45 | disposition home or self-care (01) | DRG 313 ==
LOC: ER 19:20 → 1 SOUTH 20:47
PROVIDERS: ADMIT Internal Medicine; ATTEND Internal Medicine
DX: R07.89 Other chest pain (principal); E11.65 Type 2 diabetes mellitus with hyperglycemia; E78.00 Pure hypercholesterolemia, unspecified; E78.5 Hyperlipidemia, unspecified; F41.9 Anxiety disorder, unspecified; R00.1 Bradycardia, unspecified; F90.9 Attention-deficit hyperactivity disorder, unspecified type; I10 Essential (primary) hypertension; Z82.3 Family history of stroke; Z82.49 Family history of ischemic heart disease and other diseases of the circulatory system
CPT/HCPCS: 36415; 71045; 80048; 80053; 80061; 82947; 83036; 84484; 85025; 85027; 93005; 93306; 94618; 96360; J2270; 99285-25; J7030

== ENCOUNTER 2019-03-20 17:19 | Emergency (ER) | payer OTHER, BC ==
[~2019-03-20] VITALS: Ht 172.7 cm; Wt 91.8 kg
[~2019-03-20 17:19] MED LIST changes: +ASPI-630 PO; +FENO145T30 PO; +LISI2.5T PO; +PRAV20TA2 PO
--- NOTE | 2019-03-20 18:11 | PHYS DOC ---
Past History Past Medical History: Anxiety, High Cholesterol, Other Past Surgical History: Other Alcohol Use: Rarely Drug Use: None Adult General Chief Complaint Chief Complaint: RINGING IN EARS [facility] HPI 39-year-old male presents with ringing in his right ear. 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 Afterward, he had ringing in the right ear. This lasted for a couple of hours. The ringing has decreased in intensity, but is not completely gone. The patient presented to the emergency room because he had a feeling of fullness in his right ear. He wanted to make sure there was nothing in his ear or any further trauma that he was unaware of. He denies any discharge or bleeding from the ear. He denies any other trauma or falls or impact noises. He denies fever or chills. He has no other complaints. Review of Systems Review of Systems Constitutional: Denies fever or chills [] Eyes: Denies change in visual acuity, redness, or eye pain [] HENT: Ringing in right ear[] Respiratory: Denies cough or shortness of breath [] Cardiovascular: No additional information not addressed in HPI [] GI: Denies abdominal pain, nausea, vomiting, bloody stools or diarrhea [] : Denies dysuria or hematuria [] Musculoskeletal: Denies back pain or joint pain [] Integument: Denies rash or skin lesions [] Neurologic: Denies headache, focal weakness or sensory changes [] Endocrine: Denies polyuria or polydipsia [] All other systems were reviewed and found to be within normal limits, except as documented in this note. Allergies Allergies Allergies Coded Allergies Type Severity Reaction Last Updated Verified pertussis vaccine,fluid Allergy Intermediate 10/25/18 No Physical Exam Physical Exam Constitutional: Well developed, well nourished, no acute distress, non-toxic appearance. [] HENT: Normocephalic, atraumatic, bilateral external ears normal, oropharynx moist, no oral exudates, nose normal. Bilateral tympanic membranes normal. No evidence of rupture or fluid behind the eardrums.[] Eyes: PERRLA, EOMI, conjunctiva normal, no discharge. [] Neck: Normal range of motion, no tenderness, supple, no stridor. [] Cardiovascular:Heart rate regular rhythm, no murmur [] Lungs & Thorax: Bilateral breath sounds clear to auscultation [] Abdomen: Bowel sounds normal, soft, no tenderness, no masses, no pulsatile masses. [] Skin: Warm, dry, no erythema, no rash. [] Back: No tenderness, no CVA tenderness. [] Extremities: No tenderness, no cyanosis, no clubbing, ROM intact, no edema. [] Neurologic: Alert and oriented X 3, normal motor function, normal sensory function, no focal deficits noted. [] Psychologic: Affect normal, judgement normal, mood normal. [] Current Patient Data Vital Signs Vital Signs Date Time Temp Pulse Resp B/P (MAP) Pulse Ox O2 Delivery O2 Flow Rate FiO2 03/20/19 17:29 98.7 79 18 96 Room Air EKG EKG [] Radiology/Procedures Radiology/Procedures [] Course & Med Decision Making Course & Med Decision Making Pertinent Labs and Imaging studies reviewed. (See chart for details) I believe the patient just has some post impact noise tinnitus in his right ear. The loud sound has irritated his ear and he might have some mild internal swelling which I cannot verify. It does seem to be improving slowly. I don't see any other cause of concern. I have advised some ibuprofen and getting some rest tonight. I expect it will resolve in a day or 2 at most. If it does not he will follow-up with an bone grinder. He is stable for discharge at this time. [] Dragon Disclaimer Dragon Disclaimer This electronic medical record was generated, in whole or in part, using a voice recognition dictation system. Departure Departure: Impression: Primary Impression: Tinnitus, right ear Disposition: HOME, SELF-CARE Condition: STABLE Referrals: LUIS FELIPE SCHWARTZ (PCP) Patient Instructions: MANI Butler DO March 20, 2019 18:11
[2019-03-20 18:23] VITALS: BP 131/89
== END 2019-03-20 18:22 | disposition home or self-care (01) ==
LOC: ER 17:19
DX: H93.12 Tinnitus, left ear (principal); F41.9 Anxiety disorder, unspecified; E78.00 Pure hypercholesterolemia, unspecified; Z88.7 Allergy status to serum and vaccine
CPT/HCPCS: 99281

== ENCOUNTER 2019-07-16 22:18 | Inpatient (IN) | payer BC, OTHER ==
[~2019-07-16] VITALS: Ht 177.8 cm; Wt 101.3 kg
[2019-07-16] MEDS ORDERED: IV RINGERS SOLUTION,LACTATED 1,000 ML IV SCH (22:32)
[2019-07-16] MEDS ORDERED: ASPIRIN 81 MG TAB.CHEW PO ONE (22:45)
--- NOTE | 2019-07-16 22:54 | ED.ADGEN ---
Past History Past Medical History: Anxiety, Diabetes, High Cholesterol, Hypertension, Other Past Medical History Vasectomy reversal 06/16 Past Surgical History: Other Alcohol Use: Rarely Drug Use: None Adult General Chief Complaint Chief Complaint ".. I was having this sharp chest pain.. I ve had it before ... and when I was in [place].. the did a tread mill test.. but I never got the whole test with medicines.. I was to go back.. but never did.. ".. 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 Pain is describe as sharp. Some respiratory component. Pt. has history of previous episode of this chest pain which was being worked up for cardiac causes however never completed the workup after his move here from [facility]. Patient does have a history of elevated cholesterol but has not taken his meds for some time. Patient had been recommended to take a daily aspirin but has not taken those for some time. There is family history cardiac disease to clear on mother and grandparents on mother's side. Father has history of diabetes. Does have a brother that has developmental delay but no history of cardiac issues but has history of hypothyroidism. Pt. denies any trauma. Patient denies any history of blood clots. Patient not had any recent travel or specific ill con tacts. No fever chills or cough. Has developed pain in the left groin and left testicle. He recently had a reversal of his vasectomy last month 06/16. Patient has had hypertension in the past but is no longer on meds. Review of Systems Review of Systems Constitutional: Denies fever or chills [] Eyes: Denies change in visual acuity, redness, or eye pain [] HENT: Denies nasal congestion or sore throat [] Respiratory: Denies cough or shortness of breath [] Cardiovascular: No additional information not addressed in HPI [] GI: Denies abdominal pain, nausea, vomiting, bloody stools or diarrhea [compla ins of left testicle and groin pain. : Denies dysuria or hematuria [] Musculoskeletal: Denies back pain or joint pain [] Integument: Denies rash or skin lesions [] Neurologic: Denies headache, focal weakness or sensory changes [] Endocrine: Denies polyuria or polydipsia [] All other systems were reviewed and found to be within normal limits, except as documented in this note. Family History Family History Cardiac disease mother and grandmother. Father has a history of diabetes. Brother has a history of hypothyroidism Current Medications Current Medications Current Medications Medications (Trade) Dose Ordered Sig/Navdeep Start Time Stop Time Status Last Admin Dose Admin Aspirin (Children'S Aspirin) 324 mg 1X ONCE 07/16/19 22:45 07/16/19 22:46 DC 07/16/19 22:55 324 MG Enoxaparin Sodium (Lovenox 100mg Syringe) 100 mg 1X ONCE 07/16/19 23:15 07/16/19 23:16 DC 07/16/19 23:18 100 MG Ketorolac Tromethamine (Toradol 15mg Vial) 15 mg 1X ONCE 07/16/19 23:30 07/16/19 23:31 DC Ketorolac Tromethamine (Toradol 30mg Vial) 30 mg 1X ONCE 07/16/19 23:15 07/16/19 23:16 DC 07/16/19 23:18 30 MG Lactated Ringer's 1,000 ml @ 1,000 mls/hr Q1H 07/16/19 22:32 07/16/19 23:31 DC 07/16/19 22:55 1,000 MLS/HR Morphine Sulfate (Morphine 10mg Syringe) 10 mg 1X ONCE 07/16/19 23:00 07/16/19 23:06 DC Nitroglycerin (Nitro-Bid Oint) 1 inch 1X ONCE 07/16/19 23:15 07/16/19 23:16 DC 07/16/19 23:18 1 INCH See nursing for home meds Allergies Allergies Allergies Coded Allergies Type Severity Reaction Last Updated Verified pertussis vaccine,fluid Allergy Intermediate 10/25/18 No Physical Exam Physical Exam Constitutional:, moderate acute distress, non-toxic appearance. [] HENT: Normocephalic, atraumatic, bilateral external ears normal, oropharynx moist, no oral exudates, nose normal. [] Eyes: PERRLA, EOMI, conjunctiva normal, no discharge. Glasses Neck: Normal range of motion, no tenderness, supple, no stridor. [] More than 17 inches circumference Cardiovascular: Bradycardia Heart rate regular rhythm, no murmur [] Lungs & Thorax: Bilateral breath sounds clear to auscultation [] Abdomen: Bowel sounds normal, soft, no tenderness, no masses, no pulsatile masses. [] Some tenderness on the left epididymis area. Recent surgery scar scrotal area. Circumcised male. No discharge. Skin: Warm, dry, no erythema, no rash. Multiple tattoos Back: No tenderness, no CVA tenderness. [] Extremities: No tenderness, no cyanosis, no clubbing, ROM intact, no edema. [] Neurologic: Alert and oriented X 3, normal motor function, normal sensory function, no focal deficits noted. [] Psychologic: Affect anxious, judgement normal, mood normal. [] Current Patient Data Vital Signs Vital Signs Date Time Temp Pulse Resp B/P (MAP) Pulse Ox O2 Delivery O2 Flow Rate FiO2 07/16/19 23:35 60 132/84 (100) 95 Room Air 07/16/19 23:19 12 Lab Results Laboratory Tests Test 07/16/19 22:40 07/16/19 23:55 White Blood Count 4.6 x10^3/uL (4.0-11.0) Red Blood Count 5.34 x10^6/uL (4.30-5.70) Hemoglobin 16.8 g/dL (13.0-17.5) Hematocrit 47.7 % (39.0-53.0) Mean Corpuscular Volume 89 fL (79-100) Mean Corpuscular Hemoglobin 31 pg (25-35) Mean Corpuscular Hemoglobin Concent 35 g/dL (31-37) Red Cell Distribution Width 13.4 % (11.5-14.5) Platelet Count 206 x10^3/uL (140-400) Neutrophils (%) (Auto) 56 % (31-73) Lymphocytes (%) (Auto) 31 % (24-48) Monocytes (%) (Auto) 12 % (0-9) H Eosinophils (%) (Auto) 1 % (0-3) Basophils (%) (Auto) 1 % (0-3) Neutrophils # (Auto) 2.6 x10^3uL (1.8-7.7) Lymphocytes # (Auto) 1.4 x10^3/uL (1.0-4.8) Monocytes # (Auto) 0.6 x10^3/uL (0.0-1.1) Eosinophils # (Auto) 0.0 x10^3/uL (0.0-0.7) Basophils # (Auto) 0.0 x10^3/uL (0.0-0.2) Prothrombin Time 10.8 SEC (9.4-11.4) Prothrombin Time INR 1.0 (0.9-1.1) Activated Partial Thromboplast Time 29 SEC (23-33) D-Dimer (Radha) 0.20 mg/L (0.00-0.50) Sodium Level 138 mmol/L (136-145) Potassium Level 3.4 mmol/L (3.5-5.1) L Chloride Level 102 mmol/L (98-107) Carbon Dioxide Level 26 mmol/L (21-32) Anion Gap 10 (6-14) Blood Urea Nitrogen 15 mg/dL (8-26) Creatinine 0.9 mg/dL (0.7-1.3) Estimated GFR (Cockcroft-Gault) 93.0 Glucose Level 159 mg/dL (70-99) H Calcium Level 8.7 mg/dL (8.5-10.1) Magnesium Level 2.0 mg/dL (1.8-2.4) Total Bilirubin 0.9 mg/dL (0.2-1.0) Direct Bilirubin 0.2 mg/dL (0.0-0.2) Aspartate Amino Transferase (AST) 25 U/L (15-37) Alanine Aminotransferase (ALT) 40 U/L (16-63) Alkaline Phosphatase 100 U/L (46-116) Creatine Kinase 239 U/L (39-308) Troponin I Quantitative < 0.017 ng/mL (0-0.055) XL-Pay-Y-Type Natriuretic Peptide 6 pg/mL (0-124) Total Protein 7.8 g/dL (6.4-8.2) Albumin 4.1 g/dL (3.4-5.0) Lipase 161 U/L (73-393) Urine Collection Type Unknown Urine Color Yellow Urine Clarity Clear Urine pH 5.0 Urine Specific [place] >=1.030 Urine Protein Trace (NEG-TRACE) Urine Glucose (UA) >=1000 mg/dL (NEG) Urine Ketones (Stick) Neg mg/dL (NEG) Urine Blood Neg (NEG) Urine Nitrite Neg (NEG) Urine Bilirubin Neg (NEG) Urine Urobilinogen Dipstick 0.2 mg/dL (0.2 mg/dL) Urine Leukocyte Esterase Neg (NEG) Urine RBC 0 /HPF (0-2) Urine WBC Occ /HPF (0-4) Urine Squamous Epithelial Cells Few /LPF Urine Bacteria 0 /HPF (0-FEW) EKG EKG My interpretation EKG shows a sinus rhythm at 62 bpm. No findings of acute morphology with contralateral changes.[] Radiology/Procedures Radiology/Procedures [][address] [address] IMAGING REPORT Signed PATIENT: ERIC ESPINAL ACCOUNT: [id number] : 1980 LOCATION: ER AGE: 39 SEX: M EXAM STATUS: REG ER ORD. PHYSICIAN: SANTOS HOOKER MD REASON: Chest pain, short of air PROCEDURE: CHEST PA & LATERAL PA and lateral chest x-ray HISTORY: Chest pain, shortness of breath. COMPARISON: Chest x-ray October 23, 2018. FINDINGS: Heart size normal. Mediastinal silhouette is normal. No pneumothorax, pulmonary opacities or pleural effusions. The bones are unremarkable. IMPRESSION: No acute process. Electronically signed by: Joi Stevenson MD (07/16/2019 11:14 PM) [facility] DICTATED AND SIGNED BY: JOI STEVENSON MD DATE: 07/16/19 2314 CC: SANTOS HOOKER MD; LUIS FELIPE SCHWARTZ ~ Course & Med Decision Making Course & Med Decision Making Pertinent Labs and Imaging studies reviewed. (See chart for details) Discussed presentation, testing and treatment plan with Dr. Alcala. Will admit with cardiology consult. Heart score 4-5 [] Final Impression Final Impression 1. Chest pain 2. Diabetes - gluc. 159 3. History of elevated cholesterol 4. Bradycardia [] Dragon Disclaimer Dragon Disclaimer This electronic medical record was generated, in whole or in part, using a voice recognition dictation system. Dragon Disclaimer This chart was dictated in whole or in part using Voice Recognition software in a busy, high-work load, and often noisy Emergency Department environment. It may contain unintended and wholly unrecognized errors or omissions. SANTOS HOOKER MD Jul 16, 2019 22:54
[2019-07-16] MEDS ORDERED: MORPHINE SULFATE 10 MG/ML SYRINGE. SQ ONE (23:00)
[2019-07-16 23:10] LABS: BASO % 1 % (0-3); EOS % 1 % (0-3); HEMATOCRIT 47.7 % (39.0-53.0); HEMOGLOBIN 16.8 g/dL (13.0-17.5); LYMPH # 1.4 x10^3/uL (1.0-4.8); LYMPH % 31 % (24-48); MEAN CORPUSCULAR HEMOGLOBIN 31 pg (25-35); MEAN CORPUSCULAR HGB CONC 35 g/dL (31-37); MEAN CORPUSCULAR VOLUME 89 fL (79-100); MONO # 0.6 x10^3/uL (0.0-1.1); MONO % 12 % (0-9); NEUT # 2.6 x10^3uL (1.8-7.7); NEUT % 56 % (31-73); PLATELET COUNT 206 x10^3/uL (140-400); RED BLOOD COUNT 5.34 x10^6/uL (4.30-5.70); RED CELL DISTRIBUTION WIDTH 13.4 % (11.5-14.5); WHITE BLOOD COUNT 4.6 x10^3/uL (4.0-11.0)
[2019-07-16] MEDS ORDERED: NITROGLYCERIN OINT 1 GM PACKET. TP ONE (23:15)
[2019-07-16] MEDS ORDERED: ENOXAPARIN ** NOTE DOSE ** SYRINGE SQ ONE (23:15)
[2019-07-16] MEDS ORDERED: KETOROLAC 15 MG/ML VIAL. IV ONE ×2 (23:15→23:30)
[2019-07-16] MEDS ORDERED: KETOROLAC 30 MG/ML VIAL. IV ONE (23:15)
--- NOTE | 2019-07-16 23:17 | RAD ---
PA and lateral chest x-ray HISTORY: Chest pain, shortness of breath. COMPARISON: Chest x-ray October 23, 2018. FINDINGS: Heart size normal. Mediastinal silhouette is normal. No pneumothorax, pulmonary opacities or pleural effusions. The bones are unremarkable. IMPRESSION: No acute process. Electronically signed by: Melchor Stevenson MD (07/16/2019 11:14 PM) [facility]
[2019-07-16 23:31] LABS: ALBUMIN 4.1 g/dL (3.4-5.0); CALCIUM 8.7 mg/dL (8.5-10.1); CREATININE 0.9 mg/dL (0.7-1.3); DIRECT BILIRUBIN 0.2 mg/dL (0.0-0.2); POTASSIUM 3.4 mmol/L (3.5-5.1); TOTAL BILIRUBIN 0.9 mg/dL (0.2-1.0); TOTAL PROTEIN 7.8 g/dL (6.4-8.2)
[2019-07-17] MEDS ORDERED: ACETAMINOPHEN 325 MG TABLET PO PRN (00:30)
[2019-07-17] MEDS ORDERED: ONDANSETRON PF 4 MG/2 ML VIAL. IV PRN (00:30)
[2019-07-17 00:35] LABS: CLARITY,URINE CLEAR; COLOR,URINE YELLOW
[2019-07-17 00:36] LABS: BACTERIA,URINE 0 /HPF (0-FEW); BILIRUBIN,URINE NEG (NEG); GLUCOSE,URINE >=1000 mg/dL (NEG); NITRITE,URINE NEG (NEG); RBC,URINE 0 /HPF (0-2); SQUAMOUS EPITHELIAL CELL,UR FEW /LPF; UROBILINOGEN,URINE 0.2 mg/dL (0.2 mg/dL); WBC,URINE OCC /HPF (0-4)
[2019-07-17 04:13] VITALS: BP 114/74
--- NOTE | 2019-07-17 05:41 | EKG ---
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
[2019-07-17] MEDS ORDERED: NITROGLYCERIN OINT 1 GM PACKET. TP SCH (06:00)
[2019-07-17 07:50] VITALS: BP 114/74
[2019-07-17] MEDS ORDERED: ASPIRIN 81 MG TAB.CHEW PO SCH (08:00)
--- NOTE | 2019-07-17 08:09 | PDOC2 ---
CARDIAC CONSULT DATE OF CONSULT Date Of Consult DATE: 07/17/19 TIME: 08:06 REASON FOR CONSULT Reason for Consult Chest pain History of elevated cholesterol REFERRING PHYSICIAN Referring Physician Dr. Mancilla SOURCE Source: Chart review, Patient HPI History of Present Illness This is a 39 yo male who presented secondary to chest pain. Patient reports he was sitting at his desk at work and began having stabbing pain just to the left of the sternum. Pain last for about 30 seconds and resolved without intervention. No specific worsening or relieving factors. No associated dizziness, diaphoresis, palpitations, or nausea, vomiting. Pain retuned about 7 pm and was associated with shooting sensation down his left arm and tingling in his 4th and 5th fingers. Has had similar pain about 2 years ago and underwent stress test at [facility] for which he reports as normal. Also had stress test at [facility] last year and reports the results were "inconclusive". Was supposed to return for another stress test but it would have cost him $200 out of pocket so he did not return. Does have a history of hypertension and hyperlipidemia, but does not take any medications. PAST MEDICAL HISTORY Cardiovascular: HTN, hyperipidemia PAST SURGICAL HISTORY Past Surgical History: No pertinent history FAMILY HISTORY Family History: Diabetes, Hypertension SOCIAL HISTORY Smoke: No ALCOHOL: none Drugs: None Lives: with Family CURRENT MEDICATIONS Current Medications Current Medications Aspirin (Children'S Aspirin) 324 mg 1X ONCE PO Last administered on 07/16/19at 22:55; Start 07/16/19 at 22:45; Stop 07/16/19 at 22:46; Status DC Lactated Ringer's 1,000 ml @ 1,000 mls/hr Q1H IV Last administered on 07/16/19at 22:55; Start 07/16/19 at 22:32; Stop 07/16/19 at 23:31; Status DC Enoxaparin Sodium (Lovenox 100mg Syringe) 100 mg 1X ONCE SQ Last administered on 07/16/19at 23:18; Start 07/16/19 at 23:15; Stop 07/16/19 at 23:16; Status DC Nitroglycerin (Nitro-Bid Oint) 1 inch 1X ONCE TP Last administered on 07/16/19at 23:18; Start 07/16/19 at 23:15; Stop 07/16/19 at 23:16; Status DC Morphine Sulfate (Morphine 10mg Syringe) 10 mg 1X ONCE SQ ; Start 07/16/19 at 23:00; Stop 07/16/19 at 23:06; Status DC Ketorolac Tromethamine (Toradol 15mg Vial) 15 mg 1X ONCE IV ; Start 07/16/19 at 23:15; Stop 07/16/19 at 23:16; Status Cancel Ketorolac Tromethamine (Toradol 30mg Vial) 30 mg 1X ONCE IV Last administered on 07/16/19at 23:18; Start 07/16/19 at 23:15; Stop 07/16/19 at 23:16; Status DC Ketorolac Tromethamine (Toradol 15mg Vial) 15 mg 1X ONCE IV ; Start 07/16/19 at 23:30; Stop 07/16/19 at 23:31; Status DC Ondansetron HCl (Zofran) 4 mg PRN Q4HRS PRN IV NAUSEA/VOMITING; Start 07/17/19 at 00:30; Stop 07/18/19 at 00:29 Acetaminophen (Tylenol) 650 mg PRN Q4HRS PRN PO FEVER; Start 07/17/19 at 00:30; Stop 07/18/19 at 00:29 Aspirin (Children'S Aspirin) 81 mg DAILYWBKFT PO Last administered on 07/17/19at 07:40; Start 07/17/19 at 08:00 Nitroglycerin (Nitro-Bid Oint) 1 inch Q8HRS TP ; Start 07/17/19 at 06:00 Active Scripts Active ALLERGIES Allergies: Coded Allergies: pertussis vaccine,fluid (Unverified Allergy, Intermediate, 10/25/18) ROS Review of Systems 14 point ROS conducted with pertinent positives noted above in HPI PHYSICAL EXAM General: Alert, Oriented X3, Cooperative, No acute distress HEENT: Atraumatic, Mucous membr. moist/pink Lungs: Clear to auscultation, Normal air movement Heart: Regular rate, Normal S1, Normal S2 Abdomen: Soft, No tenderness Extremities: No edema, Normal pulses Skin: No rashes, No breakdown Neuro: Normal speech, Sensation intact Psych/Mental Status: Mental status NL, Mood NL MUSCULOSKELETAL: No joint tenderness VITALS Vital Signs Vital Signs Date Time Temp Pulse Resp B/P (MAP) Pulse Ox O2 Delivery O2 Flow Rate FiO2 07/17/19 04:49 Room Air 07/17/19 04:13 97.7 61 20 114/74 (87) 96 LABS LABS Laboratory Tests Test 07/16/19 22:40 07/16/19 23:55 07/17/19 04:18 07/17/19 07:20 White Blood Count 4.6 x10^3/uL (4.0-11.0) Red Blood Count 5.34 x10^6/uL (4.30-5.70) Hemoglobin 16.8 g/dL (13.0-17.5) Hematocrit 47.7 % (39.0-53.0) Mean Corpuscular Volume 89 fL (79-100) Mean Corpuscular Hemoglobin 31 pg (25-35) Mean Corpuscular Hemoglobin Concent 35 g/dL (31-37) Red Cell Distribution Width 13.4 % (11.5-14.5) Platelet Count 206 x10^3/uL (140-400) Neutrophils (%) (Auto) 56 % (31-73) Lymphocytes (%) (Auto) 31 % (24-48) Monocytes (%) (Auto) 12 % (0-9) Eosinophils (%) (Auto) 1 % (0-3) Basophils (%) (Auto) 1 % (0-3) Neutrophils # (Auto) 2.6 x10^3uL (1.8-7.7) Lymphocytes # (Auto) 1.4 x10^3/uL (1.0-4.8) Monocytes # (Auto) 0.6 x10^3/uL (0.0-1.1) Eosinophils # (Auto) 0.0 x10^3/uL (0.0-0.7) Basophils # (Auto) 0.0 x10^3/uL (0.0-0.2) Prothrombin Time 10.8 SEC (9.4-11.4) Prothromb Time International Ratio 1.0 (0.9-1.1) Activated Partial Thromboplast Time 29 SEC (23-33) D-Dimer (Radha) 0.20 mg/L (0.00-0.50) Sodium Level 138 mmol/L (136-145) Potassium Level 3.4 mmol/L (3.5-5.1) Chloride Level 102 mmol/L (98-107) Carbon Dioxide Level 26 mmol/L (21-32) Anion Gap 10 (6-14) Blood Urea Nitrogen 15 mg/dL (8-26) Creatinine 0.9 mg/dL (0.7-1.3) Estimated GFR (Cockcroft-Gault) 93.0 Glucose Level 159 mg/dL (70-99) Calcium Level 8.7 mg/dL (8.5-10.1) Magnesium Level 2.0 mg/dL (1.8-2.4) Total Bilirubin 0.9 mg/dL (0.2-1.0) Direct Bilirubin 0.2 mg/dL (0.0-0.2) Aspartate Amino Transf (AST/SGOT) 25 U/L (15-37) Alanine Aminotransferase (ALT/SGPT) 40 U/L (16-63) Alkaline Phosphatase 100 U/L (46-116) Creatine Kinase 239 U/L (39-308) Troponin I Quantitative < 0.017 ng/mL (0-0.055) < 0.017 ng/mL (0-0.055) < 0.017 ng/mL (0-0.055) RB-Ikb-V-Type Natriuretic Peptide 6 pg/mL (0-124) Total Protein 7.8 g/dL (6.4-8.2) Albumin 4.1 g/dL (3.4-5.0) Lipase 161 U/L (73-393) Urine Collection Type Unknown Urine Color Yellow Urine Clarity Clear Urine pH 5.0 Urine Specific [place] >=1.030 Urine Protein Trace (NEG-TRACE) Urine Glucose (UA) >=1000 mg/dL (NEG) Urine Ketones (Stick) Neg mg/dL (NEG) Urine Blood Neg (NEG) Urine Nitrite Neg (NEG) Urine Bilirubin Neg (NEG) Urine Urobilinogen Dipstick 0.2 mg/dL (0.2 mg/dL) Urine Leukocyte Esterase Neg (NEG) Urine RBC 0 /HPF (0-2) Urine WBC Occ /HPF (0-4) Urine Squamous Epithelial Cells Few /LPF Urine Bacteria 0 /HPF (0-FEW) ECHOCARDIOGRAM Echocardiogram <Conclusion> The left ventricular systolic function is normal. The Ejection Fraction is 55-60%. There is normal LV segmental wall motion. Trace tricuspid regurgitation. There is no evidence of significant pericardial effusion. DATE: 10/25/18 0729 ASSESSMENT/PLAN Assessment/Plan 1. Chest pain, atypical. AMI ruled out. EKG without significant acute changes. 2. Hypertension; elevated upon arrival 3. Hyperlipidemia 4. Elevated glucose; new diagnosis of DM, II ?. 5. Hypokalemia Recommendations ASA Add low-dose ACEi Discontinue nitro paste Lipid panel- statin as indicated Echo to assess LV systolic function If echo is WNL, may discharge from a CV standpoint Consider outpatient stress test. AUNG SALAZAR APRN Jul 17, 2019 08:09
[2019-07-17] MEDS ORDERED: LISINOPRIL 5 MG TABLET. PO SCH (09:00)
[2019-07-17] MEDS ORDERED: POTASSIUM CHLORIDE 20 MEQ TABLET.ER. PO ONE (09:00)
[2019-07-17 10:47] VITALS: BP 123/76
[2019-07-17 14:12] LABS: HDLC 21 mg/dL (40-60); TRIGLYCERIDES 518 mg/dL (0-150); VLDLC 103 mg/dL (0-40)
--- NOTE | 2019-07-17 14:52 | CARD ---
MR#: [id number] Date of Study: 07/17/2019 Ordering Physician: AUNG SALAZAR, Referring Physician: AUNG SALAZAR, Tech: Kate Gold RDCS APPROVED REPORT EXAM: Two-dimensional and M-mode echocardiogram with Doppler and color Doppler. Other Information Quality : Good INDICATION Chest Pain 2D DIMENSIONS RVDd3.1 (2.9-3.5cm)Left Atrium(2D)3.9 (1.6-4.0cm) IVSd1.0 (0.7-1.1cm)Aortic Root(2D)3.2 (2.0-3.7cm) LVDd4.5 (3.9-5.9cm)LVOT Diameter2.2 (1.8-2.4cm) PWd1.0 (0.7-1.1cm)LVDs2.8 (2.5-4.0cm) FS (%) 37.2 %SV62.3 ml LVEF(%)60.0 (>50%) Aortic Valve AoV Peak Nate.110.5cm/sAoV VTI20.7cm AO Peak GR.4.9mmHgAO Mean GR.3mmHg KARISSA (VTI)3.60cm2 Mitral Valve MV E Gzcwreit96.8cm/sMV DECEL RRML392ve MV A Mypbubim28.6cm/sE/A Ratio1.3 Tricuspid Valve TR P. Jurwcnof168lu/sRAP RIYSGBIX0arYl TR Peak Gr.89paSjENYM80dwVx LEFT VENTRICLE The left ventricle is normal size. There is normal left ventricular wall thickness. The left ventricu lar systolic function is normal and the ejection fraction is within normal range. The Ejection Fracti on is 55-60%. There is normal LV segmental wall motion. The left ventricular diastolic function and f illing is normal for age. RIGHT VENTRICLE The right ventricle is normal size. The right ventricular systolic function is normal. ATRIA The left atrium size is normal. The right atrium size is normal. The interatrial septum is intact wit h no evidence for an atrial septal defect or patent foramen ovale as noted on 2-D or Doppler imaging. AORTIC VALVE The aortic valve is normal in structure and function. Doppler and Color Flow revealed no significant aortic regurgitation. There is no significant aortic valvular stenosis. MITRAL VALVE The mitral valve is normal in structure and function. There is no evidence of mitral valve prolapse. There is no mitral valve stenosis. Doppler and Color Flow revealed no mitral valve regurgitation note d. TRICUSPID VALVE The tricuspid valve is normal in structure and function. Doppler and Color Flow revealed physiologica l tricuspid regurgitation. The PA pressure was estimated at 18 mmHg. There is no tricuspid valve sten osis. PULMONIC VALVE The pulmonic valve is not well visualized. Doppler and Color Flow revealed trace pulmonic valvular re gurgitation. There is no pulmonic valvular stenosis. GREAT VESSELS The aortic root is normal in size. The ascending aorta is normal in size. The IVC was not visualized. PERICARDIAL EFFUSION There is no evidence of significant pericardial effusion. Critical Notification Critical Value: No Signed by : Oscar Lopez, Electronically Approved : 07/17/2019 14:52:14
[2019-07-17 15:58] VITALS: BP 118/77
--- NOTE | 2019-07-17 18:36 | SSS ---
ADMIT DATE: 07/17/2019 HISTORY OF PRESENT ILLNESS: The patient is a 39-year-old male patient, who was admitted to the Emergency Room with complaint of chest pain. The patient was sitting at his desk at work and began having stabbing pain just to the left of the sternum. Pain lasted for about 30 seconds and resolved without intervention. No specific worsening or relieving factors. Denied any associated dizziness, diaphoresis, palpitation, nausea or vomiting. The pain returned about 7 p.m. and was associated with shooting sensation down his left arm and tingling in his fourth and fifth finger, had had similar pain about 2 years ago and underwent stress test at [facility], but he reports the report was normal. Also, had a stress test at [facility] last year and reports the results were inconclusive and was supposed to return to another stress test, but it would have cost him about $200 out of pocket and so he did not return. Did have a history of hypertension, hyperlipidemia, but does not take any medication. He was evaluated in the Emergency Room and has EKG. He was in sinus rhythm with heart rate of 62 beats per minute, no ST segment elevation or depression. Has had 3 sets of cardiac enzymes that ruled out myocardial infarction. His fasting lipid profile showed his serum triglycerides were high at 518, total cholesterol 185, LDL cholesterol got to be calculated, his VLDL was high at 103, his HDL was 21 and ratio was 8 and TSH was high at 9.506. He has had an echocardiogram done, which basically showed that the patient has left ventricular systolic function is normal, ejection fraction within normal range, ejection fraction was 55-60%. There are no valvular abnormalities. The aortic root is normal in size. The ascending aorta is normal. The IVC was not visualized. There is no evidence of significant pericardial effusion and a decision was made to discharge him home and to consider outpatient stress test. PAST MEDICAL HISTORY: Significant for hypertension, hyperlipidemia; however, the patient is not taking any medication. PAST SURGICAL HISTORY: Unremarkable. FAMILY HISTORY: Positive for diabetes and hypertension. SOCIAL HISTORY: He lives with his family. He does not smoke, drink alcohol or use any recreational drugs. REVIEW OF SYSTEMS: As per history of present illness. ALLERGIES: He is allergic to PERTUSSIS VACCINE. MEDICATIONS: He is not currently on any medication. PHYSICAL EXAMINATION: GENERAL: On arrival to the hospital, the patient looked well and was clearly in no apparent respiratory distress. No pallor, jaundice, cyanosis or thyromegaly. No jugular venous distension. No lower limb edema. VITAL SIGNS: His heart rate was 61, blood pressure 114/74, temperature was 97.7, respiratory rate 20 and oxygen saturation was 96% on room air. HEAD, EYES, EARS, NOSE AND THROAT: Showed normocephalic, atraumatic. NECK: Supple. HEART: Showed normal first and second heart sounds. No gallop or murmur. CHEST: Clear to auscultation. No crepitation or rhonchi. ABDOMEN: Distended, soft, nontender. No guarding or rigidity. No organomegaly. All hernial orifices intact. Bowel sounds normal. NEUROLOGIC: He was awake, alert, responding appropriately. All cranial nerves intact. EXTREMITIES: He moves extremities without difficulty, ambulates without assistance or assistive devices. LABORATORY DATA: Showed a serum sodium 138, potassium 3.4, chloride 102, bicarbonate 26, anion gap of 10, BUN 15, creatinine 0.9, estimated GFR was 93 mL per minute, his glucose 159, his calcium was 8.7, magnesium 2. Total bilirubin, AST, ALT, alkaline phosphatase were normal. His total protein was 7.8, albumin was 4.1. His lipase 161. His white cell count was 4600, hemoglobin 16.8, hematocrit 48, MCV 89 and platelet count 206,000. Prothrombin time was 10.8, INR of 1, aPTT was 29. D-dimer was 0.2. Urinalysis showed the urine was yellow, clear with a pH of 5, specific gravity 1.030. There was a trace of protein, large amount of glucose. The urine was negative for ketones, blood, nitrite and leukocyte esterase. There are no rbc's, no wbc's and no bacteria. He has 3 sets of cardiac enzymes that were negative. His chest x-ray showed the heart size is normal, mediastinum silhouette is normal. No pneumothorax, pulmonary opacities or pleural effusion. The bones are unremarkable. ASSESSMENT AND PLAN: Chest pain, atypical, acute myocardial infarction was ruled out. The patient has also hypertension, hyperlipidemia, elevated glucose probably and also high TSH, probably has type 2 diabetes and hypothyroidism, has also hypokalemia. The patient's blood pressure was elevated initially; however, the blood pressure was eventually normalized. The patient was advised to find the primary care physician. We will start him on Synthroid 50 mcg once a day and we will also explained to him that his blood sugar is high and also has a large amount of glucose in the urine indicating that he is probably diabetic. JOSUE ALBERT MD DR: GRZEGORZ/kristopher JOB#: [id number] / [id number]
[2019-07-17 23:07] LABS: HEMOGLOBIN A1C 8.5 % (4.8-5.6)
== END 2019-07-17 18:15 | disposition home or self-care (01) | DRG 313 ==
LOC: ER 22:18 → 1 SOUTH 07-17 00:01
PROVIDERS: ADMIT Internal Medicine; ATTEND Internal Medicine
DX: R07.89 Other chest pain (principal); E03.9 Hypothyroidism, unspecified; E78.00 Pure hypercholesterolemia, unspecified; E11.9 Type 2 diabetes mellitus without complications; E78.5 Hyperlipidemia, unspecified; E87.6 Hypokalemia; F41.9 Anxiety disorder, unspecified; I10 Essential (primary) hypertension; Z82.49 Family history of ischemic heart disease and other diseases of the circulatory system; Z83.3 Family history of diabetes mellitus
CPT/HCPCS: 36415; 71046; 80048; 80061; 80076; 81001; 82550; 83036; 83690; 83735; 83880; 84443; 84484; 85025; 85379; 85610; 85730; 93005; 93306; 96361; 96372; 96374; J1650; J1885; J7120; 99285-25

== ENCOUNTER 2019-09-04 20:28 | Emergency (ER) | payer BC, OTHER ==
[~2019-09-04] VITALS: Ht 172.7 cm; Wt 98.4 kg
[2019-09-04 20:30] VITALS: BP 137/98
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
--- NOTE | 2019-09-04 20:59 | RAD ---
Two-view chest dated 09/04/2019. Comparison made to 07/16/2019. CLINICAL INDICATION: Cough. FINDINGS: PA and lateral views obtained. Heart and mediastinal contours within normal limits. Lungs are clear. No consolidation or pleural effusion. No pneumothorax. IMPRESSION: No acute radiographic abnormality. Electronically signed by: Benito Glover MD (09/04/2019 8:56 PM) [facility]
[2019-09-04 22:07] LABS: BGAS PH 7.42 (7.35-7.46)
[2019-09-04] MEDS ORDERED: PROM118S9 PO (23:24)
== END 2019-09-04 23:30 | disposition home or self-care (01) ==
LOC: ER 20:28
DX: T59.891A Toxic effect of other specified gases, fumes and vapors, accidental (unintentional), initial encounter (principal); J68.8 Other respiratory conditions due to chemicals, gases, fumes and vapors; E78.00 Pure hypercholesterolemia, unspecified; I10 Essential (primary) hypertension; Z88.7 Allergy status to serum and vaccine; Y92.148 Other place in prison as the place of occurrence of the external cause
CPT/HCPCS: 36415; 71046; 82375; 82803; 99285-25

== ENCOUNTER 2019-10-18 17:03 | Emergency (ER) | payer BC, OTHER ==
[2019-10-17] MEDS: MORPHINE SULFATE 4 MG/ML DISP.SYRIN. IV/SQ PRN (18:27)
[~2019-10-18] VITALS: Ht 172.7 cm; Wt 89.8 kg
[~2019-10-18 17:03] MED LIST changes: +FENO145T3 PO; -FENO145T30 PO; +PROM118S9 PO
--- NOTE | 2019-10-18 17:19 | PHYS DOC ---
Past History Past Medical History: Anxiety, Diabetes, High Cholesterol, Hypertension, Hypothyroid, Other Additional Past Medical Histor: high triglycerides, tinnitus right ear (ARGELIA ORTIZ DO) Past Surgical History: Other Additional Past Surgical Histo: vasectomy and reversal, left breast , wisdom teeth (ARGELIA ORTIZ DO) Alcohol Use: Rarely Drug Use: None (ARGELIA ORTIZ DO) Adult General Chief Complaint Chief Complaint: MECHANICAL FALL HPI HPI Patient is a 39-year-old male presents complaining of low back pain. Patient slipped on a dog toy, and ended up falling down 7 steps. He has been unable to walk since this happened due to pain. He was able to crawl to get a phone and call EMS. EMS established an IV and gave the patient fentanyl for pain management which has helped. There has been no loss of bowel or bladder control. Pain is moderate to severe, worse with movement. No numbness or tingling. This happened shortly prior to arrival. There was no head injury. No loss of consciousness.[] (ARGELIA ORTIZ DO) Review of Systems Review of Systems Constitutional: Denies fever or chills [] Eyes: Denies change in visual acuity, redness, or eye pain [] HENT: Denies nasal congestion or sore throat [] Respiratory: Denies cough or shortness of breath [] Cardiovascular: No chest pain or palpitation[] GI: Denies abdominal pain, nausea, vomiting, bloody stools or diarrhea [] : Denies dysuria or hematuria [] Musculoskeletal: See history of present illness[] Integument: Denies rash or skin lesions [] Neurologic: Denies headache, focal weakness or sensory changes [] Endocrine: Denies polyuria or polydipsia [] All other systems were reviewed and found to be within normal limits, except as documented in this note. (ARGELIA ORTIZ DO) Allergies Allergies Allergies Coded Allergies Type Severity Reaction Last Updated Verified pertussis vaccine,fluid Allergy Intermediate 10/25/18 No (ARGELIA ORTIZ DO) Physical Exam Physical Exam Constitutional: Well developed, well nourished, no acute distress, non-toxic appearance. [] HENT: Normocephalic, atraumatic, bilateral external ears normal, TMs are clear without any blood or fluid, no Britt sign, no raccoon eyes, oropharynx moist, no oral exudates, nose normal. [] Eyes: PERRLA, EOMI, conjunctiva normal, no discharge. [] Neck: Normal range of motion, no tenderness, supple, no stridor. No midline tenderness, no step-off, no crepitus [] Cardiovascular:Heart rate regular rhythm, no murmur [] Lungs & Thorax: Bilateral breath sounds clear to auscultation [] Abdomen: Bowel sounds normal, soft, no tenderness, no masses, no pulsatile masses. [] Skin: Warm, dry, no erythema, no rash. [] Back: Tenderness to palpation in the lower lumbar region. There is no step-off or crepitus. Tenderness is midline. No bruising is noted. No CVA tenderness. [] Extremities: No tenderness, no cyanosis, no clubbing, ROM intact, no edema. [] Neurologic: Alert and oriented X 3, normal motor function, normal sensory function, no focal deficits noted. [] Psychologic: Affect normal, judgement normal, mood normal. [] (ARGELIA ORTIZ DO) EKG EKG [] (ARGELIA ORTIZ DO) Radiology/Procedures Radiology/Procedures [] (ARGELIA ORTIZ DO) Impressions: CT LUMBAR SPINE WO CONTRAST dated 10/18/2019 5:13 PM Indication: Pain after falling. Comparison: No comparison is available. Technique: Noncontrast images were performed. Sagittal and coronal reconstructions were obtained. One or more of the following individualized dose reduction techniques were utilized for this examination: 1. Automated exposure control 2. Adjustment of the mA and/or kV according to patient size 3. Use of iterative reconstruction technique Findings: Alignment is normal. There is no loss of vertebral body height or other evidence for fracture. The intervertebral discs do not appear narrowed. Evaluation of the soft tissue components of the canal is limited without intrathecal contrast. There is no obvious large disc protrusion. IMPRESSION: No acute abnormality. Electronically signed by: Krissy Scott Jr., MD (10/18/2019 5:54 PM) [facility] DICTATED AND SIGNED BY: KRISSY SCOTT Jr, MD DATE: 10/18/19 7501 CC: ARGELIA ORTIZ DO; LUIS FELIPE SCHWARTZ (MANI HAGAN DO) Course & Med Decision Making Course & Med Decision Making Pertinent Labs and Imaging studies reviewed. (See chart for details) Emergency department course: Patient arrived, was placed in bed, and tolerated exam well. Patient was rolled as a unit utilizing multiple nurses/paramedics, for evaluation of his back. Finding is noted above. CT scan was obtained of the lumbar spine. Additional pain medicine was ordered. Patient care was endorsed to the nighttime physician at 1800 with imaging findings pending. [] (ARGELIA ORTIZ DO) Course & Med Decision Making The patient's CT of the lumbar spine is negative for acute findings. The patient is just banged up. I've advised supportive care, pain management with [place] and ibuprofen, rest and gentle stretching. He is stable for discharge at this time. (MANI HAGAN DO) Dragon Disclaimer Dragon Disclaimer This electronic medical record was generated, in whole or in part, using a voice recognition dictation system. (ARGELIA ORTIZ DO) Departure Departure: Impression: Primary Impression: Fall down stairs Additional Impression: Lumbar back pain Disposition: HOME, SELF-CARE Condition: STABLE Referrals: LUIS FELIPE SCHWARTZ (PCP) Patient Instructions: Contusion, [id number], Low Back Strain with Rehab- [facility] Scripts Hydrocodone Bit/Acetaminophen (NORCO 5-325 TABLET) 1 Each Tablet 1 TAB PO PRN Q6HRS PRN for PAIN, #10 TAB 0 Refills Prov: MANI HAGAN DO 10/18/19 Problem Qualifiers Primary Impression: Fall down stairs Encounter type: initial encounter Qualified Codes: W10.8XXA - Fall (on) (from) other stairs and steps, initial encounter ARGELIA ORTIZ DO Oct 18, 2019 17:19 MANI HAGAN DO Oct 18, 2019 18:08
--- NOTE | 2019-10-18 17:57 | RAD ---
CT LUMBAR SPINE WO CONTRAST dated 10/18/2019 5:13 PM Indication: Pain after falling. Comparison: No comparison is available. Technique: Noncontrast images were performed. Sagittal and coronal reconstructions were obtained. One or more of the following individualized dose reduction techniques were utilized for this examination: 1. Automated exposure control 2. Adjustment of the mA and/or kV according to patient size 3. Use of iterative reconstruction technique Findings: Alignment is normal. There is no loss of vertebral body height or other evidence for fracture. The intervertebral discs do not appear narrowed. Evaluation of the soft tissue components of the canal is limited without intrathecal contrast. There is no obvious large disc protrusion. IMPRESSION: No acute abnormality. Electronically signed by: Nir Scott Jr., MD (10/18/2019 5:54 PM) [facility]
[2019-10-18] MEDS: MORPHINE SULFATE 4 MG/ML DISP.SYRIN. IV/SQ PRN (18:00)
[2019-10-18] MEDS ORDERED: HYDR-3165 PO (18:07)
[2019-10-18 18:29] VITALS: BP 144/89
== END 2019-10-18 18:33 | disposition home or self-care (01) ==
LOC: ER 17:03
DX: M54.5 Low back pain (principal); G89.11 Acute pain due to trauma; F41.9 Anxiety disorder, unspecified; E11.9 Type 2 diabetes mellitus without complications; E78.00 Pure hypercholesterolemia, unspecified; I10 Essential (primary) hypertension; Z88.7 Allergy status to serum and vaccine; W10.8XXA Fall (on) (from) other stairs and steps, initial encounter; Y93.89 Activity, other specified; Y92.89 Other specified places as the place of occurrence of the external cause; Y99.8 Other external cause status
CPT/HCPCS: 72131; 96374; 99284; J2270

== ENCOUNTER 2019-12-24 20:00 | Emergency (ER) | payer BC, OTHER ==
[~2019-12-24] VITALS: Ht 172.7 cm; Wt 102.0 kg
[~2019-12-24 20:00] MED LIST changes: +HYDR-3165 PO
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
[2019-12-24] MEDS ORDERED: NEOMY/BACITR/POLYMYXIN OINT PACKET. TP ONE (20:15)
== END 2019-12-24 20:23 | disposition home or self-care (01) ==
LOC: ER 20:00
DX: Z77.21 Contact with and (suspected) exposure to potentially hazardous body fluids (principal); E11.9 Type 2 diabetes mellitus without complications; E78.00 Pure hypercholesterolemia, unspecified; I10 Essential (primary) hypertension; E03.9 Hypothyroidism, unspecified; Z88.7 Allergy status to serum and vaccine
CPT/HCPCS: 86703; 86705; 86709; 86803; 87340; 99283

== ENCOUNTER 2020-11-14 05:51 | Observation (INO) | payer BC, OTHER ==
[~2020-11-14] VITALS: Ht 172.7 cm; Wt 101.0 kg
[~2020-11-14 05:51] MED LIST changes: +PROM118S10 PO; -PROM118S9 PO
[2020-11-14 06:38] LABS: BASO # 0.1 x10^3/uL (0.0-0.2); BASO % 1 % (0-3); EOS # 0.1 x10^3/uL (0.0-0.7); EOS % 2 % (0-3); HEMATOCRIT 49.3 % (39.0-53.0); HEMOGLOBIN 16.9 g/dL (13.0-17.5); LYMPH # 1.4 x10^3/uL (1.0-4.8); LYMPH % 29 % (24-48); MEAN CORPUSCULAR HEMOGLOBIN 31 pg (25-35); MEAN CORPUSCULAR HGB CONC 34 g/dL (31-37); MEAN CORPUSCULAR VOLUME 89 fL (79-100); MONO # 0.6 x10^3/uL (0.0-1.1); MONO % 11 % (0-9); NEUT # 2.8 x10^3uL (1.8-7.7); NEUT % 57 % (31-73); PLATELET COUNT 209 x10^3/uL (140-400); RED BLOOD COUNT 5.52 x10^6/uL (4.30-5.70); RED CELL DISTRIBUTION WIDTH 12.6 % (11.5-14.5)
[2020-11-14] MEDS: NITROGLYCERIN SUBLINGUAL 0.4 MG BOTTLE OF 25. SL PRN ×2 (06:41→07:10)
[2020-11-14 06:43] LABS: CALCIUM 8.2 mg/dL (8.5-10.1); CREATININE 0.9 mg/dL (0.7-1.3); GFR 92.5; POTASSIUM 3.5 mmol/L (3.5-5.1)
[2020-11-14] MEDS ORDERED: METF10007 PO (06:43)
[2020-11-14] MEDS ORDERED: LEVO75TA76 PO (06:43)
[2020-11-14] MEDS ORDERED: ATOR20TA58 PO (06:43)
--- NOTE | 2020-11-14 06:44 | PHYS DOC ---
Past History Past Medical History: Anxiety, Diabetes, High Cholesterol, Hypertension, Hypothyroid, Other Additional Past Medical Histor: high triglycerides, tinnitus right ear Past Surgical History: Other Additional Past Surgical Histo: vasectomy and reversal, left breast , wisdom te eth Smoking: Non-smoker Alcohol Use: Rarely Drug Use: None General Adult EDM: Chief Complaint: CHEST PAIN HPI: HPI: Patient is a 40-year-old male coming in for chest pain that started about 2-1/2 hours, 3:30 AM, prior to arrival. Patient describes the pain as substernal like someone is trying to "pull my heart out". Patient radiates to both arms and right leg. Denies any cardiac history other than a first-degree AV block. Has a history of diabetes and dyslipidemia, is taking a statin and Metformin. Patient has had a history of hypertension but is not been taking medications because his blood pressure has not been high. Patient states he has had recent stressors including the loss of his mother and grandmother within the last month. He has a family history significant for PA in his parents in the 50s. Denies any shortness of breath, nausea or vomiting, diaphoresis, cough, fevers, or any other recent illness. He denies any tobacco, alcohol, drug use. Denies any history of GI bleeding or liver disease. Per chart review he was hospitalized about 1-1/2 years ago for a negative cardiac observation Review of Systems: Review of Systems: All other systems within normal limits except for as noted in the HPI Current Medications: Current Meds: Current Medications Medications (Trade) Dose Ordered Sig/[facility] Start Time Stop Time Status Last Admin Dose Admin Aspirin (Aspirin Chewable) 324 mg 1X ONCE 11/14/20 07:00 11/14/20 07:01 Nitroglycerin (Nitrostat) 0.4 mg PRN Q5MIN PRN 11/14/20 06:30 11/15/20 06:29 Allergies: Allergies: Allergies Coded Allergies Type Severity Reaction Last Updated Verified pertussis vaccine,fluid Allergy Intermediate 10/25/18 No Physical Exam: PE: Constitutional: Well developed, well nourished, no acute distress, non-toxic appearance, nondiaphoretic. [] HENT: Normocephalic, atraumatic, bilateral external ears normal, nose normal. [] Eyes: PERRLA, conjunctiva normal, no discharge. [] Neck: No rigidity, supple, no stridor. [] Cardiovascular: Regular rate and rhythm, brisk cap refill, symmetric radial pulses [] Lungs & Thorax: Non labored symmetric respirations, no tachypnea or respiratory distress, clear to auscultation [] Abdomen: Soft, nondistended. Skin: Warm, dry, no erythema, no rash, no pallor. [] Back: No tenderness, no CVA tenderness. [] Extremities: No deformities, range of motion grossly intact, no lower extremity edema [] Neurologic: Alert and oriented X 3, no focal deficits noted. [] Psychologic: Affect normal, judgement normal, mood normal. [] EKG: EKG: Sinus rhythm with leftward axis deviation. Heart rate [address] elevation in 1 and aVL, ST depression in lead III. Unchanged from EKG in September 2018 [] Radiology/Procedures: Radiology/Procedures: EXAM: XR CHEST 2V 11/14/2020 6:36 AM CLINICAL INDICATION: Chest pain COMPARISON: Chest radiograph 09/04/2019 TECHNIQUE: PA and lateral views of the chest FINDINGS: The heart and mediastinum are normal. Lungs are well-expanded and clear. No consolidation, pleural effusion, or pneumothorax. Pulmonary vascularity is normal. No acute osseous abnormality. IMPRESSION: Normal chest radiograph. [] Heart Score: HEART Score for Chest Pain: HEART Score for Chest Pain Response (Comments) Value History Moderately Suspicious 1 ECG Nonspecific Repolarizatio 1 Age < 45 0 Risk Factors >3 Risk Factors or Hx CAD 2 Troponin < Normal Limit 0 Total 4 Risk Factors: Risk Factors: DM, Current or recent (<one month) smoker, HTN, HLP, family history of CAD, obesity. Risk Scores: Score 0 - 3: 2.5% MACE over next 6 weeks - Discharge Home Score 4 - 6: 20.3% MACE over next 6 weeks - Admit for Clinical Observation Score 7 - 10: 72.7% MACE over next 6 weeks - Early Invasive Strategies Course & Med Decision Making: Course & Med Decision Making Pertinent Labs and Imaging studies reviewed. (See chart for details) Consulted Dr. Fleming about ST changes, believes they are likely repolarization abnormalities and not a STEMI, suggest trending enzymes [] Pain improved with nitro patient has a headache. Given fentanyl with improvement of pain. Admit for chest pain observation and echo to rule out Tako tsubo cardiomyopathy due to recent stressors Zuleyka Disclaimer: Zuleyka Disclaimer: This electronic medical record was generated, in whole or in part, using a voice recognition dictation system. Departure Departure: Impression: Primary Impression: Chest pain, rule out acute myocardial infarction Disposition: 09 ADMITTED INPT THIS HOSP Admitting Physician: Marisel Alcala Condition: STABLE Referrals: LUIS FELIPE SCHWARTZ (PCP) NIKO ACOSTA MD Nov 14, 2020 06:44
[2020-11-14 06:56] LABS: ALBUMIN 3.7 g/dL (3.4-5.0); MAGNESIUM 1.9 mg/dL (1.8-2.4); TOTAL BILIRUBIN 0.8 mg/dL (0.2-1.0); TOTAL PROTEIN 7.3 g/dL (6.4-8.2)
[2020-11-14] MEDS ORDERED: ASPIRIN CHEWABLE 81 MG TABLET. PO ONE (07:00)
--- NOTE | 2020-11-14 07:25 | RAD ---
EXAM: XR CHEST 2V 11/14/2020 6:36 AM CLINICAL INDICATION: Chest pain COMPARISON: Chest radiograph 09/04/2019 TECHNIQUE: PA and lateral views of the chest FINDINGS: The heart and mediastinum are normal. Lungs are well-expanded and clear. No consolidatio n, pleural effusion, or pneumothorax. Pulmonary vascularity is normal. No acute osseous abnormality. IMPRESSION: Normal chest radiograph. Electronically signed by: Valeria Kimbrough MD (11/14/2020 7:23 AM) [id number]
[2020-11-14] MEDS ORDERED: ONDANSETRON PF 4 MG/2 ML VIAL. ONE (07:34)
[2020-11-14] MEDS ORDERED: ONDANSETRON PF 4 MG/2 ML VIAL. IVP ONE (07:45)
[2020-11-14 08:11] LABS: BACTERIA,URINE 0 /HPF (0-FEW); BILIRUBIN,URINE NEG (NEG); CLARITY,URINE CLEAR; COLOR,URINE YELLOW; GLUCOSE,URINE >=1000 mg/dL (NEG); NITRITE,URINE NEG (NEG); RBC,URINE RARE /HPF (0-2); SQUAMOUS EPITHELIAL CELL,UR OCC /LPF; UROBILINOGEN,URINE 0.2 mg/dL (0.2 mg/dL); WBC,URINE OCC /HPF (0-4)
[2020-11-14] MEDS ORDERED: ACETAMINOPHEN 325 MG TABLET PO PRN (09:00)
[2020-11-14] MEDS ORDERED: NITROGLYCERIN SUBLINGUAL 0.4 MG BOTTLE OF 25. SL PRN (09:00)
[2020-11-14] MEDS ORDERED: ONDANSETRON PF 4 MG/2 ML VIAL. IVP PRN (09:00)
--- NOTE | 2020-11-14 10:35 | NUR ---
The patient, ERIC ESPINAL, 40 y/o, M admitted by JOSUE ALBERT MD, arrived on unit at 1030 was given written information regarding hospital policies, unit procedures and contact persons. Valuables were checked and VS taken please see chart. Routine consult to [facility] Cardiology made for patient c/o chest pain.
[2020-11-14 10:48] VITALS: BP 115/77
[2020-11-14] MEDS ORDERED: DEXTROSE 50% 25 GM / 50ML DISP.SYRIN. IV PRN (12:45)
--- NOTE | 2020-11-14 13:27 | HP ---
ADMIT DATE: 11/14/2020 HISTORY OF PRESENT ILLNESS: The patient is a 40-year-old male patient who came to the Emergency Room complaining of chest pain that started about 2-1/2 hours prior to arrival to the Emergency Room, specifically at 3:30 in the morning. He describes the pain as substernal, like "someone is trying to pull my heart out." The pain radiates to both arms and right leg. Denied any cardiac history other than first-degree AV block. He is known to have type 2 diabetes and hyperlipidemia and he is on atorvastatin and metformin. Apparently, he had had similar symptoms about 2 years ago and was seen at [facility] and had a stress test that was unremarkable. He rated his chest pain as 8-9/10 associated with shortness of breath, diaphoresis, and nausea, but no vomiting. He was evaluated in the Emergency Room, has had lab work, which was unremarkable except for hyperglycemia. His first set of cardiac enzyme was less than 0.017 and the patient has had also an EKG showed that he was in sinus rhythm with a heart rate of 70 beats per minute. He has ST segment elevation in I and aVL, ST depression in lead III; however, the EKG is unchanged from 09/2018. We will check his fasting lipid profile and two sets of cardiac enzyme and consult the Cardiology team. PAST MEDICAL HISTORY: Significant for type 2 diabetes mellitus, hyperlipidemia, and hypothyroidism. PAST SURGICAL HISTORY: Significant for right breast lumpectomy, vasectomy and reversal, and had had an EGD and colonoscopy. ALLERGIES: He is allergic to PERTUSSIS vaccination. MEDICATIONS: He is currently on following medications: He is on atorvastatin calcium 20 mg at bedtime, metformin 1000 mg twice a day, and levothyroxine 75 mcg once a day. FAMILY HISTORY: He has one brother who is younger and is mentally handicapped. His father is still alive at the age of 65 and has diabetes and hyperlipidemia. His mother at age of 64 because of metastatic lung cancer. He is also known to have diabetes and myocardial infarction. SOCIAL HISTORY: He is . Has never smoked. Drinks alcohol very occasionally. 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 REVIEW OF SYSTEMS: As per history of present illness. PHYSICAL EXAMINATION: GENERAL: On examining him, he looked well and was clearly in no apparent respiratory distress. No pallor, jaundice, cyanosis, or thyromegaly. No jugular venous distention. No limb edema. VITAL SIGNS: His heart rate was 73, blood pressure was 146/106, temperature was 98.8, respiratory rate 20, and oxygen saturation was 96%. HEAD, EYES, EARS, NOSE AND THROAT: Showed normocephalic, atraumatic. NECK: Supple. HEART: Showed normal first and second sounds. No gallop or murmur. CHEST: Showed central trachea. Equal bilateral expansion and air entry. Vesicular breath sounds. I could not appreciate any crepitation or rhonchi. ABDOMEN: Distended, soft, and nontender. NEUROLOGIC: He was awake, alert, responding appropriately. All cranial nerves are intact. He moves extremities without difficulty. LABORATORY DATA: His lab work showed that his white cell count was 5000, hemoglobin 16.9, hematocrit 49, MCV 89, and platelet count of 209,000 with normal manual differential. His prothrombin time, INR, and aPTT as well as D-dimer are all normal. His chemistry showed a serum sodium of 136, potassium 3.5, chloride 101, bicarbonate 24, anion gap of 11, BUN 15, creatinine 0.9, estimated GFR was 92 mL per minute. His glucose was 191, calcium was 8.2, magnesium was 1.9. Total bilirubin, AST, ALT, alkaline phosphatase were normal. His first set of cardiac enzymes showed troponin to be less than 0.017. Beta-natriuretic peptide was 10. Total protein was 7.3, albumin 3.7. Urinalysis essentially showed large amount of glucosuria, but otherwise negative. ASSESSMENT AND PLAN: The patient was admitted with chest pain to rule out myocardial infarction. We will do 2 more sets of cardiac enzyme. We will check his fasting lipid profile, consult the Cardiology team. The patient has multiple risk factors including type 2 diabetes mellitus, hyperlipidemia, and has also strong family history. JOSUE ALBERT MD DR: GRZEGORZ/kristopher JOB#: [id number] / [id number]
--- NOTE | 2020-11-14 14:07 | PDOC2 ---
CONSULT DOS: DATE: 11/14/20 TIME: 14:00 Reason for Consult: Chest pain Referring Physician: Dr. Alcala Chief Complaint Chest pain Source: Chart review, Patient Problem List Problems Medical Problems: (1) Chest pain, rule out acute myocardial infarction Status: Acute History of Present Illness 40-year-old male presented complaining of retrosternal chest pain that he described as pressure/squeezing sensation, that started at 3:30 in the morning and woke him up. He went back to sleep and was on his way to work but since the chest pain was not getting better he presented to ED. The pain was apparently 9/10 severity when it started associated with diaphoresis, left arm tingling and mild nausea and is currently at 5/10 severity. He denied any exertional component. He was evaluated for similar chest pain at [facility] in the past but he denied any recent stress test. He denied any orthopnea/PND, palpitations or syncope. Past Medical History Diabetes mellitus type 2 Hyperlipidemia Hypothyroidism Past Surgical History Vasectomy and subsequent reversal EGD Family History Positive for premature coronary disease Social History Patient denied any smoking or drug abuse but admitted to social intake of alcohol. He works at [employer]. Current Medications Current Medications Aspirin (Aspirin Chewable) 324 mg 1X ONCE PO Last administered on 11/14/20at 06:40; Start 11/14/20 at 07:00; Stop 11/14/20 at 07:01; Status DC Nitroglycerin (Nitrostat) 0.4 mg PRN Q5MIN PRN SL CP RATING > 1/10 Last administered on 11/14/20at 07:10; Start 11/14/20 at 06:30; Stop 11/15/20 at 06:29 Fentanyl Citrate (Fentanyl 2ml Vial) 75 mcg 1X ONCE IVP Last administered on 11/14/20at 07:16; Start 11/14/20 at 07:15; Stop 11/14/20 at 07:26; Status DC Ondansetron HCl (Zofran) 4 mg 1X ONCE IVP Last administered on 11/14/20at 07:35; Start 11/14/20 at 07:45; Stop 11/14/20 at 07:46; Status DC Ondansetron HCl (Zofran) 4 mg STK-MED ONCE .ROUTE ; Start 11/14/20 at 07:34; Stop 11/14/20 at 07:34; Status DC Fentanyl Citrate (Fentanyl 2ml Vial) 75 mcg 1X ONCE IVP Last administered on 11/14/20at 09:07; Start 11/14/20 at 09:00; Stop 11/14/20 at 09:02; Status DC Ondansetron HCl (Zofran) 4 mg PRN Q4HRS PRN IVP NAUSEA/VOMITING; Start 11/14/20 at 09:00; Stop 11/15/20 at 08:59 Fentanyl Citrate (Fentanyl 2ml Vial) 50 mcg PRN Q1HR PRN IVP PAIN; Start 11/14/20 at 09:00; Stop 11/15/20 at 08:59 Acetaminophen (Tylenol) 650 mg PRN Q4HRS PRN PO FEVER > 100.3'F; Start 11/14/20 at 09:00; Stop 11/15/20 at 08:59 Nitroglycerin (Nitrostat) 0.4 mg PRN Q5MIN PRN SL CHEST PAIN; Start 11/14/20 at 09:00; Stop 11/14/20 at 12:51; Status DC Atorvastatin Calcium (Lipitor) 20 mg QHS PO ; Start 11/14/20 at 21:00 Levothyroxine Sodium (Synthroid) 75 mcg DAILY06 PO ; Start 11/15/20 at 09:00 Metformin HCl (Glucophage) 500 mg BIDWMEALS PO ; Start 11/14/20 at 17:00 Insulin Human Lispro (HumaLOG) 0-7 UNITS TIDWMEALS SQ ; Start 11/14/20 at 17:00 Dextrose (Dextrose 50%-Water Syringe) 12.5 gm PRN Q15MIN PRN IV SEE COMMENTS; Start 11/14/20 at 12:45 Active Scripts Active Reported Metformin Hcl 1,000 Mg Tablet 1,000 Mg PO BID Euthyrox (Levothyroxine Sodium) 75 Mcg Tablet 75 Mcg PO DAILY Atorvastatin Calcium 20 Mg Tablet 20 Mg PO QHS Allergies: Coded Allergies: pertussis vaccine,fluid (Unverified Allergy, Intermediate, 11/14/20) PSYCHOLOGICAL ROS: No: Hallucinations Eyes: No: Loss of vision HEENT: No: Epistaxis Respiratory: No: Hemoptysis, Shortness of breath Cardiovascular: yes: Chest Pain Gastrointestinal: YES: Nausea Genitourinary: No: [place] Neurological: No: Seizures Skin: No: Rash General: Alert, Oriented X3 HEENT: Atraumatic, PERRLA Lungs: Clear to auscultation Heart: Regular rate Abdomen: Normal bowel sounds, No tenderness Extremities: No edema Psych/Mental Status: Mood NL VITALS Vital Signs Date Time Temp Pulse Resp B/P (MAP) Pulse Ox O2 Delivery O2 Flow Rate FiO2 11/14/20 11:13 95 Room Air 11/14/20 10:48 97.9 67 20 115/77 (90) Labs Laboratory Tests Test 11/14/20 06:10 11/14/20 07:42 11/14/20 09:08 11/14/20 12:20 White Blood Count 5.0 x10^3/uL (4.0-11.0) Red Blood Count 5.52 x10^6/uL (4.30-5.70) Hemoglobin 16.9 g/dL (13.0-17.5) Hematocrit 49.3 % (39.0-53.0) Mean Corpuscular Volume 89 fL (79-100) Mean Corpuscular Hemoglobin 31 pg (25-35) Mean Corpuscular Hemoglobin Concent 34 g/dL (31-37) Red Cell Distribution Width 12.6 % (11.5-14.5) Platelet Count 209 x10^3/uL (140-400) Neutrophils (%) (Auto) 57 % (31-73) Lymphocytes (%) (Auto) 29 % (24-48) Monocytes (%) (Auto) 11 % (0-9) Eosinophils (%) (Auto) 2 % (0-3) Basophils (%) (Auto) 1 % (0-3) Neutrophils # (Auto) 2.8 x10^3uL (1.8-7.7) Lymphocytes # (Auto) 1.4 x10^3/uL (1.0-4.8) Monocytes # (Auto) 0.6 x10^3/uL (0.0-1.1) Eosinophils # (Auto) 0.1 x10^3/uL (0.0-0.7) Basophils # (Auto) 0.1 x10^3/uL (0.0-0.2) Prothrombin Time 10.2 SEC (9.4-11.4) Prothromb Time International Ratio 1.0 (0.9-1.1) Activated Partial Thromboplast Time 26 SEC (23-33) D-Dimer (Radha) 0.25 mg/L (0.00-0.50) Sodium Level 136 mmol/L (136-145) Potassium Level 3.5 mmol/L (3.5-5.1) Chloride Level 101 mmol/L (98-107) Carbon Dioxide Level 24 mmol/L (21-32) Anion Gap 11 (6-14) Blood Urea Nitrogen 15 mg/dL (8-26) Creatinine 0.9 mg/dL (0.7-1.3) Estimated GFR (Cockcroft-Gault) 92.5 BUN/Creatinine Ratio 17 (6-20) Glucose Level 291 mg/dL (70-99) Calcium Level 8.2 mg/dL (8.5-10.1) Magnesium Level 1.9 mg/dL (1.8-2.4) Total Bilirubin 0.8 mg/dL (0.2-1.0) Aspartate Amino Transf (AST/SGOT) 15 U/L (15-37) Alanine Aminotransferase (ALT/SGPT) 46 U/L (16-63) Alkaline Phosphatase 108 U/L (46-116) Troponin I Quantitative < 0.017 ng/mL (0-0.055) < 0.017 ng/mL (0-0.055) < 0.017 ng/mL (0-0.055) NI-Jww-Y-Type Natriuretic Peptide 10 pg/mL (0-124) Total Protein 7.3 g/dL (6.4-8.2) Albumin 3.7 g/dL (3.4-5.0) Albumin/Globulin Ratio 1.0 (1.0-1.7) Urine Collection Type Unknown Urine Color Yellow Urine Clarity Clear Urine pH 5.0 Urine Specific [place] >=1.030 Urine Protein Neg (NEG-TRACE) Urine Glucose (UA) >=1000 mg/dL (NEG) Urine Ketones (Stick) Trace mg/dL (NEG) Urine Blood Neg (NEG) Urine Nitrite Neg (NEG) Urine Bilirubin Neg (NEG) Urine Urobilinogen Dipstick 0.2 mg/dL (0.2 mg/dL) Urine Leukocyte Esterase Neg (NEG) Urine RBC Rare /HPF (0-2) Urine WBC Occ /HPF (0-4) Urine Squamous Epithelial Cells Occ /LPF Urine Bacteria 0 /HPF (0-FEW) Urine Mucus Slight /LPF Assessment/Plan 1. Chest pain with atypical features. Myocardial infarction has been ruled out based on cardiac enzymes and EKG. 2D echo in June 2019 showed LVEF 55 to 60%. Plan for outpatient exercise stress echocardiogram to rule out ischemic etiology. 2. Hyperlipidemia: Continue statin therapy. His triglycerides are significantly elevated. He was advised stricter diet control. Repeat lipid profile in 3 months to evaluate the need for fibrates/vascepa. 3. Hypothyroidism: On levothyroxine 4. Diabetes mellitus type 2: Treat per IM Thank you for your consultation VASYL SALGUERO MD Nov 14, 2020 14:07
--- NOTE | 2020-11-14 14:38 | DS ---
DATE OF DISCHARGE: 11/14/2020 HOSPITAL COURSE: The patient is a 40-year-old male patient who was admitted with chest pain that is retrosternal, rated about 8/10 in severity, associated with shortness of breath, nausea, but no vomiting or diaphoresis. He has had 3 sets of cardiac enzymes that showed troponin to be less than 0.017 and his EKG showed no evidence of ST segment elevation or depression. He was seen by the business process manager, who recommended an echocardiogram and ischemic workup as an outpatient. PHYSICAL EXAMINATION: GENERAL: When I saw him this afternoon, he looked well and was clearly in no apparent respiratory distress. No pallor, jaundice, cyanosis or thyromegaly. No jugular venous distention or limb edema. VITAL SIGNS: His heart rate was 67 and blood pressure was 115/77, temperature 97.9, respiratory rate 20, and oxygen saturation was 95% on room air. The rest of clinical exam is stable. ASSESSMENT AND PLAN: We did order fasting lipid profile, the results were still pending at the time of this dictation. The patient was discharged home to continue on his atorvastatin 20 mg at bedtime, levothyroxine sodium 75 mcg once a day, metformin 1000 mg twice a day. His blood sugar is suboptimally controlled and they recommended that the patient should follow with his primary care physician as probably he needs to have some either more oral hypoglycemic agent like perhaps Amaryl or glimepiride to have a better control of his blood sugar. He will be seen at the Cardiology [facility] for an outpatient echocardiogram and a stress test. FINAL DISCHARGE DIAGNOSES: Chest pain, myocardial infarction ruled out, hypertension, hyperlipidemia and hypothyroidism. JOSUE ALBERT MD DR: GRZEGORZ/kristopher JOB#: [id number] / [id number]
--- NOTE | 2020-11-14 15:32 | NUR ---
Patient discharged to home. Given written discharge instructions and voiced understanding. All patient belongings sent home with patient. Dr. Fleming seen patient today and states patient is okay to discharge and follow up as outpatient. Patient also given card for Dr. Hendricks's office as he states he is looking for a new PCP. No further concerns noted at discharge.
--- NOTE | 2020-11-14 15:52 | EKG ---
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
[2020-11-14] MEDS ORDERED: INSULIN LISPRO 300 UNITS/3 ML VIAL. SQ SCH (17:00)
[2020-11-14] MEDS ORDERED: metFORMIN 500 MG TABLET PO SCH (17:00)
[2020-11-14] MEDS ORDERED: ATORVASTATIN CALCIUM 20 MG TABLET PO SCH (21:00)
[2020-11-15] MEDS ORDERED: LEVOTHYROXINE 75 MCG TABLET PO SCH (09:00)
== END 2020-11-14 15:32 | disposition home or self-care (01) ==
LOC: ER 05:51 → 1 SOUTH 08:56
PROVIDERS: ADMIT Internal Medicine; ATTEND Internal Medicine
DX: R07.89 Other chest pain (principal); E11.65 Type 2 diabetes mellitus with hyperglycemia; E78.5 Hyperlipidemia, unspecified; E03.9 Hypothyroidism, unspecified; E78.00 Pure hypercholesterolemia, unspecified; I10 Essential (primary) hypertension; I25.10 Atherosclerotic heart disease of native coronary artery without angina pectoris; Z79.890 Hormone replacement therapy; Z79.899 Other long term (current) drug therapy; Z87.891 Personal history of nicotine dependence; Z79.84 Long term (current) use of oral hypoglycemic drugs; Z98.890 Other specified postprocedural states; Z79.82 Long term (current) use of aspirin
CPT/HCPCS: 36415; 71046; 80053; 80061; 81001; 83735; 83880; 84484; 85025; 85379; 85610; 85730; 93005; 96374; 96375; 96376; 99285; G0378; J1815; J2405; J3010; G0379

== ENCOUNTER 2021-04-29 11:03 | Emergency (ER) | payer BC ==
[~2021-04-29] VITALS: Ht 172.7 cm; Wt 101.0 kg
[~2021-04-29 11:03] MED LIST changes: +ATOR20TA58 PO; +LEVO75TA76 PO; +METF10007 PO
[2021-04-29 11:29] VITALS: BP 126/85
--- NOTE | 2021-04-29 11:48 | PHYS DOC ---
Past History Past Medical History: Anxiety, Diabetes, High Cholesterol, Hypertension, Hypothyroid, Other Additional Past Medical Histor: tinnitus rt ear Past Surgical History: Other Additional Past Surgical Histo: lt breast bx, vasectomy and reversal, wisdom teeth Smoking: Non-smoker Alcohol Use: Rarely Drug Use: None Adult General Chief Complaint Chief Complaint: TESTICULAR PAIN OR INJURY [facility] HPI Patient is a 41-year-old male presenting for left testicle issues. He presents for x1 week of subjective swelling in generalized pain to left side of scrotum and left inguinal area. Nothing known makes better, palpation and pressure make worse. Pain is dull in nature and does not radiate. Timing of symptoms wax and wane. He is sexually active with long-term partner and has no concerns for STDs as he has no penile drainage or other concerning signs or symptoms. He does have a history of vasectomy with back flow problems and subsequent reversal in 2019. Review of Systems Review of Systems Fourteen body systems of review of systems have been reviewed. See HPI for pertinent positives and negative responses, other gallego all other systems are negative, non-pertinent or non-contributory Allergies Allergies Allergies Coded Allergies Type Severity Reaction Last Updated Verified pertussis vaccine,fluid Allergy Intermediate 11/14/20 No Physical Exam Physical Exam Constitutional: Well developed, well nourished, no acute distress, non-toxic appearance. HENT: Normocephalic, atraumatic, bilateral external ears normal, oropharynx moist, no oral exudates, nose normal. Eyes: PERRLA, EOMI, conjunctiva normal, no discharge. Neck: Normal range of motion, no tenderness, supple, no stridor. Cardiovascular: Heart rate regular, sinus rhythm, no murmurs rubs or gallops Lungs & Thorax: Bilateral breath sounds clear to auscultation Abdomen: Bowel sounds normal, soft, no tenderness, no masses, no pulsatile masses. Nonsurgical abdomen, no peritoneal signs : External genitalia unremarkable with circumcised penis without drainage tenderness or crepitus, testicle and scrotum exam unremarkable, bilateral testes similar in appearance, no palpable and/or visual abnormalities, both descended, negative inguinal hernia test. Patient does have subjective tenderness with palpation to left testicle versus contralateral side. Positive cremaster test bilaterally Skin: Warm, dry, no erythema, no rash. Back: No tenderness, no CVA tenderness. Extremities: No tenderness, no cyanosis, no clubbing, ROM intact, no edema. Neurologic: Alert and oriented X 3, grossly normal motor & sensory function, no focal deficits noted. Psychologic: Anxious affect and mood Current Patient Data Vital Signs Vital Signs Date Time Temp Pulse Resp B/P (MAP) Pulse Ox O2 Delivery O2 Flow Rate FiO2 04/29/21 11:29 70 18 126/85 97 EKG EKG [] Radiology/Procedures Radiology/Procedures INDICATION: Reason: LT TESTICULAR PAIN / Spl. Instructions: / History: COMPARISON: None. TECHNIQUE: Grayscale, color and spectral doppler ultrasound images obtained of the scrotum. FINDINGS: Right Testicle: 54 x 32 x 22 mm. Vascular flow is identified. Left Testicle: 49 x 34 x 25 mm. Vascular flow is identified. The vascular flow bilaterally seems globally decreased. IMPRESSION: * Vascular flow is seen to the bilateral testicles but appears globally decreased bilaterally. * No worrisome testicular mass. Electronically signed by: Kip Gamboa MD (04/29/2021 12:26 PM) [id number] Heart Score C/O Chest Pain: No Risk Factors: Risk Factors: DM, Current or recent (<one month) smoker, HTN, HLP, family history of CAD, obesity. Risk Scores: Risk Factors: DM, Current or recent (<one month) smoker, HTN, HLP, family history of CAD, obesity. Course & Med Decision Making Course & Med Decision Making ABCs unremarkable. I disclosed entirety of ER findings and discussed most likely diagnosis of subjective left inguinal pain. I disclosed vitals, physical examination and ultrasonography of left testicle are grossly unremarkable. I did disclose finding of decreased flow to bilateral testes. I discussed my recommendation to call on-call urologist to review further; however, patient deferred in felt reassured enough that he was not having a torsion or any e mergent matter. Given his history and subjective signs and symptoms, I still recommended close outpatient follow-up with primary care physician and to establish care with urologist given history of vasectomy with backflow problem and subsequent reversal. I did disclose this might be an acute presentation more concerning pathology especially with imaging showing decrease flow to b ilateral testes and so, strict return precautions were also discussed at length with good understanding by patient. Patient voiced understanding and agreement with the plan. Patient knows to come back for repeat evaluation if concerning signs or symptoms present prior to outpatient follow-up. Hemodynamically stable, ambulatory and well-appearing at time of disposition. Dragon Disclaimer Dragon Disclaimer This electronic medical record was generated, in whole or in part, using a voice recognition dictation system. Departure Departure: Impression: Primary Impression: Pain in left testicle Disposition: HOME / SELF CARE / HOMELESS Condition: STABLE Referrals: ALONSO EVANS MD (PCP) Additional Instructions: As discussed prior to your departure, your vitals, physical exam, urinalysis and ultrasonography were all unremarkable for any emergent or surgical issues. As discussed, continued supportive care practices and outpatient follow-up with ur ologist, Dr. Ramirez whose information is attached to this discharge pamphlet should be contacted for close outpatient follow-up. If any concerning signs or symptoms present prior to outpatient follow-up please do not hesitate to come back for repeat evaluation. It was a pleasure to take care of you and I wish you the best going forward EUN DE LA CRUZ DO Apr 29, 2021 11:48
[2021-04-29 11:58] LABS: BILIRUBIN,URINE NEG (NEG); CLARITY,URINE CLEAR; COLOR,URINE YELLOW; GLUCOSE,URINE >=1000 mg/dL (NEG); NITRITE,URINE NEG (NEG); UROBILINOGEN,URINE 0.2 mg/dL (0.2 mg/dL)
[2021-04-29 12:00] LABS: BACTERIA,URINE 0 /HPF (0-FEW); RBC,URINE 0 /HPF (0-2); WBC,URINE 0 /HPF (0-4)
--- NOTE | 2021-04-29 12:28 | RAD ---
INDICATION: Reason: LT TESTICULAR PAIN / Spl. Instructions: / History: COMPARISON: None. TECHNIQUE: Grayscale, color and spectral doppler ultrasound images obtained of the scrotum. FINDINGS: Right Testicle: 54 x 32 x 22 mm. Vascular flow is identified. Left Testicle: 49 x 34 x 25 mm. Vascular flow is identified. The vascular flow bilaterally seems globally decreased. IMPRESSION: * Vascular flow is seen to the bilateral testicles but appears globally decreased bilaterally. * No worrisome testicular mass. Electronically signed by: Kip Gamboa MD (04/29/2021 12:26 PM) [id number]
== END 2021-04-29 13:05 | disposition home or self-care (01) ==
LOC: ER 11:03
DX: N50.812 Left testicular pain (principal); E11.9 Type 2 diabetes mellitus without complications; E78.5 Hyperlipidemia, unspecified; I10 Essential (primary) hypertension; Z23 Encounter for immunization
CPT/HCPCS: 36415; 76870; 81001; 87491; 87591; 99284-25

== ENCOUNTER 2021-05-05 05:51 | Emergency (ER) | payer BC ==
[~2021-05-05] VITALS: Ht 172.7 cm; Wt 104.4 kg
[2021-05-05] MEDS ORDERED: IV NORMAL SALINE 1,000ML 1,000 ML IV ONE (06:00)
--- NOTE | 2021-05-05 06:12 | PHYS DOC ---
Past History Past Medical History: Anxiety, Diabetes, High Cholesterol, Hypertension, Hypothyroid, Other Additional Past Medical Histor: tinnitus rt ear Past Surgical History: Other Additional Past Surgical Histo: lt breast bx, vasectomy and reversal, wisdom teeth Smoking: Non-smoker Alcohol Use: Rarely Drug Use: None General Adult EDM: Chief Complaint: CHEST PAIN HPI: HPI: 41-year-old male presents with chest pain. 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 He began having chest pain that was more on the right side of center and radiating straight through to his back. It is a pressure sensation of moderate intensity. It feels like "somebody is trying to squeeze their hands from the front and back". The patient has not had pain like this before. He has a history of AV robbie block with no further description. He had a stress test in December that was reported to be normal. Patient has diabetes and takes cholesterol medicine. He has not had his Synthroid in the last 3 days. He is taking his other medications. He was feeling fine prior to this episode. His only other symptoms are some hand tingling mostly along the ulnar distribution. It is in his left arm today and is usually in his right arm. He denies fever or chills. Review of Systems: Review of Systems: Constitutional: Denies fever or chills Eyes: Denies change in visual acuity HENT: Denies nasal congestion or sore throat Respiratory: Denies cough or shortness of breath Cardiovascular: Chest pain GI: Denies abdominal pain, nausea, vomiting, bloody stools or diarrhea : Denies dysuria Musculoskeletal: Denies back pain or joint pain Integument: Denies rash Neurologic: Denies headache, focal weakness or sensory changes Endocrine: Denies polyuria or polydipsia Lymphatic: Denies swollen glands Psychiatric: Denies depression or anxiety Current Medications: Current Meds: Current Medications Medications (Trade) Dose Ordered Sig/Navdeep Start Time Stop Time Status Last Admin Dose Admin Sodium Chloride 1,000 ml @ 1,000 mls/hr 1X ONCE 05/05/21 06:00 05/05/21 06:59 Allergies: Allergies: Allergies Coded Allergies Type Severity Reaction Last Updated Verified pertussis vaccine,fluid Allergy Intermediate 11/14/20 No Physical Exam: PE: Constitutional: Well developed, well nourished, obese, no acute distress, non- toxic appearance. [] HENT: Normocephalic, atraumatic, bilateral external ears normal, oropharynx moist, no oral exudates, nose normal. [] Eyes: PERRLA, EOMI, conjunctiva normal, no discharge. [] Neck: Normal range of motion, no tenderness, supple, no stridor. [] Cardiovascular: Heart rate 58, regular rhythm, no murmur [] Lungs & Thorax: Bilateral breath sounds clear to auscultation [] Abdomen: Bowel sounds normal, soft, no tenderness, no masses, no pulsatile mas ses. [] Skin: Warm, dry, no erythema, no rash. [] Back: No tenderness, no CVA tenderness. [] Extremities: No tenderness, no cyanosis, no clubbing, ROM intact, no edema. [] Neurologic: Alert and oriented X 3, normal motor function, normal sensory function, no focal deficits noted. [] Psychologic: Affect normal, judgement normal, mood concerned. [] Current Patient Data: Vital Signs: Vital Signs Date Time Temp Pulse Resp B/P (MAP) Pulse Ox O2 Delivery O2 Flow Rate FiO2 05/05/21 05:54 97.9 64 17 153/91 (111) 99 Room Air EKG: EKG: Sinus rhythm, rate 58, leftward axis, no ST elevation or depression. [] Radiology/Procedures: Radiology/Procedures: [] Impressions: EXAM: CHEST 1 VIEW History: Chest pain COMPARISON: 11/14/2020 TECHNIQUE: Single portable radiograph of the chest FINDINGS: The cardiac silhouette is unremarkable. The lungs are clear bilaterally. The costophrenic sulci are clear and well demarcated. IMPRESSION: No radiographic evidence of an acute cardiopulmonary process. Electronically signed by: Uche Fagan MD (05/05/2021 6:14 AM) [id number] DICTATED AND SIGNED BY: UCHE FAGAN MD DATE: 05/05/21 0613 CC: MANI HAGAN DO; ALONSO EVANS MD ~MTH0 0 Heart Score: C/O Chest Pain: Yes HEART Score for Chest Pain: HEART Score for Chest Pain Response (Comments) Value History Slighlty/Non-Suspicious 0 ECG Normal 0 Age < 45 0 Risk Factors 1 or 2 Risk Factors 1 Troponin < Normal Limit 0 Total 1 Risk Factors: Risk Factors: DM, Current or recent (<one month) smoker, HTN, HLP, family history of CAD, obesity. Risk Scores: Score 0 - 3: 2.5% MACE over next 6 weeks - Discharge Home Score 4 - 6: 20.3% MACE over next 6 weeks - Admit for Clinical Observation Score 7 - 10: 72.7% MACE over next 6 weeks - Early Invasive Strategies Course & Med Decision Making: Course & Med Decision Making Pertinent Labs and Imaging studies reviewed. (See chart for details) The patient's labs are unremarkable except for an elevated blood sugar of 247 with a normal anion gap. His troponin is negative. His EKG is unremarkable. I suspect the patient's symptoms in his hands are related to his blood sugar not being as well-controlled as it should. He is taking 2 different oral medications as well as long-acting insulin. I have expressed to the patient that he may need to tweak his diabetes regimen and this may help him feel better. He does not appear to be having a cardiopulmonary complication at this time. He is stable for discharge. [] Moonon Disclaimer: Zuleyka Disclaimer: This electronic medical record was generated, in whole or in part, using a voice recognition dictation system. Departure Departure: Referrals: ALONSO EVANS MD (PCP) MANI HAGAN DO May 05, 2021 06:12
--- NOTE | 2021-05-05 06:16 | RAD ---
EXAM: CHEST 1 VIEW History: Chest pain COMPARISON: 11/14/2020 TECHNIQUE: Single portable radiograph of the chest FINDINGS: The cardiac silhouette is unremarkable. The lungs are clear bilaterally. The costophrenic sulci are clear and well demarcated. IMPRESSION: No radiographic evidence of an acute cardiopulmonary process. Electronically signed by: Uche Fagan MD (05/05/2021 6:14 AM) [id number]
[2021-05-05 06:30] LABS: BASO # 0.1 x10^3/uL (0.0-0.2); BASO % 1 % (0-3); EOS # 0.1 x10^3/uL (0.0-0.7); EOS % 2 % (0-3); HEMATOCRIT 45.2 % (39.0-53.0); LYMPH # 1.3 x10^3/uL (1.0-4.8); LYMPH % 28 % (24-48); MEAN CORPUSCULAR HEMOGLOBIN 32 pg (25-35); MEAN CORPUSCULAR HGB CONC 36 g/dL (31-37); MEAN CORPUSCULAR VOLUME 89 fL (79-100); MONO # 0.6 x10^3/uL (0.0-1.1); MONO % 12 % (0-9); NEUT # 2.7 x10^3uL (1.8-7.7); NEUT % 57 % (31-73); PLATELET COUNT 186 x10^3/uL (140-400); WHITE BLOOD COUNT 4.7 x10^3/uL (4.0-11.0)
[2021-05-05 06:34] LABS: HEMOGLOBIN 16.3 g/dL (13.0-17.5)
[2021-05-05 06:42] LABS: CALCIUM 8.1 mg/dL (8.5-10.1); CREATININE 0.9 mg/dL (0.7-1.3); GFR 92.1; POTASSIUM 3.8 mmol/L (3.5-5.1)
[2021-05-05 06:48] LABS: ALBUMIN 3.7 g/dL (3.4-5.0); ALBUMIN/GLOBULIN RATIO 1.2 (1.0-1.7); TOTAL BILIRUBIN 0.7 mg/dL (0.2-1.0); TOTAL PROTEIN 6.9 g/dL (6.4-8.2)
[2021-05-05] MEDS ORDERED: ACETAMINOPHEN 325 MG TABLET PO ONE (07:15)
[2021-05-05 07:45] VITALS: BP 120/70
--- NOTE | 2021-05-05 18:52 | EKG ---
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
== END 2021-05-05 07:45 | disposition home or self-care (01) ==
LOC: ER 05:51
DX: R07.89 Other chest pain (principal); F41.9 Anxiety disorder, unspecified; E11.9 Type 2 diabetes mellitus without complications; E78.00 Pure hypercholesterolemia, unspecified; I10 Essential (primary) hypertension; E03.9 Hypothyroidism, unspecified; Z88.7 Allergy status to serum and vaccine
CPT/HCPCS: 36415; 71045; 80053; 84484; 85025; 93005; 96360; 99285; J7030

== ENCOUNTER 2021-10-09 10:26 | Emergency (ER) | payer BC ==
[~2021-10-09] VITALS: Ht 172.7 cm; Wt 104.4 kg
[~2021-10-09 10:26] MED LIST changes: -LISI2.5T PO; +LISI2.5T12 PO
[2021-10-09 10:32] VITALS: BP 151/79
--- NOTE | 2021-10-09 11:16 | PHYS DOC ---
Past History Past Medical History: Anxiety, Diabetes, High Cholesterol, Hypertension, Hypothyroid, Other Additional Past Medical Histor: tinnitus rt ear Past Surgical History: Other Additional Past Surgical Histo: lt breast bx, vasectomy and reversal, wisdom teeth Smoking: Non-smoker Alcohol Use: None Drug Use: None General Adult EDM: Chief Complaint: BACK PAIN - NO INJURY HPI: HPI: 41-year-old male presents with bilateral hand numbness and right foot "feels cold". The patient does have diabetes and he was started on Trulicity 2 weeks ago. His blood sugars have been much lower since that time. He has not had a single blood sugar above 150 with the lows in the upper 60s. He is concerned because he has had global bilateral hand numbness and did not think he would dior ve that on his blood sugar improved. He is also had right midfoot to toe decreased temperature. He denies numbness or altered sensation, it just feels cold. Patient denies any falls or trauma. He does work on his feet 16 to 18 hours a day. Review of Systems: Review of Systems: Constitutional: Denies fever or chills Eyes: Denies change in visual acuity HENT: Denies nasal congestion or sore throat Respiratory: Denies cough or shortness of breath Cardiovascular: Denies chest pain or edema GI: Denies abdominal pain, nausea, vomiting, bloody stools or diarrhea : Denies dysuria Musculoskeletal: Denies back pain or joint pain Integument: Denies rash Neurologic: Hand numbness, right foot decreased temperature Endocrine: Denies polyuria or polydipsia Lymphatic: Denies swollen glands Psychiatric: Denies depression or anxiety Allergies: Allergies: Allergies Coded Allergies Type Severity Reaction Last Updated Verified pertussis vaccine,fluid Allergy Intermediate 11/14/20 No Physical Exam: PE: Constitutional: Well developed, well nourished, obese, no acute distress, non- toxic appearance. [] HENT: Normocephalic, atraumatic, bilateral external ears normal, oropharynx mois t, no oral exudates, nose normal. [] Eyes: PERRLA, EOMI, conjunctiva normal, no discharge. [] Neck: Normal range of motion, no tenderness, supple, no stridor. [] Cardiovascular:Heart rate regular rhythm, no murmur [] Lungs & Thorax: Bilateral breath sounds clear to auscultation [] Abdomen: Bowel sounds normal, soft, no tenderness, no masses, no pulsatile masses. [] Skin: Warm, dry, no erythema, no rash. [] Back: No tenderness, no CVA tenderness. [] Extremities: No tenderness, no cyanosis, no clubbing, ROM intact, no edema. Strong pedal pulse right foot, no obvious abnormality. [] Neurologic: Alert and oriented X 3, normal motor function, normal sensory function, no focal deficits noted. [] Psychologic: Affect normal, judgement normal, mood normal. [] Current Patient Data: Vital Signs: Vital Signs Date Time Temp Pulse Resp B/P (MAP) Pulse Ox O2 Delivery O2 Flow Rate FiO2 10/09/21 10:32 98.7 18 151/79 (103) 98 Room Air EKG: EKG: [] Radiology/Procedures: Radiology/Procedures: [] Heart Score: C/O Chest Pain: N/A Risk Factors: Risk Factors: DM, Current or recent (<one month) smoker, HTN, HLP, family history of CAD, obesity. Risk Scores: Score 0 - 3: 2.5% MACE over next 6 weeks - Discharge Home Score 4 - 6: 20.3% MACE over next 6 weeks - Admit for Clinical Observation Score 7 - 10: 72.7% MACE over next 6 weeks - Early Invasive Strategies Course & Med Decision Making: Course & Med Decision Making Pertinent Labs and Imaging studies reviewed. (See chart for details) The patient and I had a long conversation about his symptoms. It seems most likely that this is neuropathy related. It may be part of the process of his body getting used to his new medication regimen and overall change in his blood sugar. It is also possible that the hand numbness could be carpal tunnel. He states that it tends to be most noticeable later in the day during his work shifts. I have advised that he monitor both of these issues and follow-up with his physician next week. He states verbal understanding. He is stable for discharge at this time. [] Dragon Disclaimer: Dragon Disclaimer: This electronic medical record was generated, in whole or in part, using a voice recognition dictation system. Departure Departure: Impression: Primary Impression: Neuropathy Disposition: HOME / SELF CARE / HOMELESS Condition: STABLE Referrals: ALONSO EVANS MD (PCP) Patient Instructions: Diabetic Neuropathy MANI HAGAN DO Oct 09, 2021 11:16
== END 2021-10-09 12:23 | disposition home or self-care (01) ==
LOC: ER 10:26
DX: E11.40 Type 2 diabetes mellitus with diabetic neuropathy, unspecified (principal); F41.9 Anxiety disorder, unspecified; E78.00 Pure hypercholesterolemia, unspecified; I10 Essential (primary) hypertension; E03.9 Hypothyroidism, unspecified; Z88.7 Allergy status to serum and vaccine
CPT/HCPCS: 99281

== ENCOUNTER → 2022-03-01 | Outpatient (CLI) | payer BC ==
--- NOTE | 2022-03-01 16:32 | RAD ---
EXAM: XR OS CALCIS_right 2+ VIEWS 03/01/2022 12:24 PM CLINICAL INDICATION: Heel pain x months COMPARISON: None TECHNIQUE: Lateral and axial views of the right calcaneus FINDINGS: No acute fracture. Alignment is normal. There is a small plantar calcaneal enthesophyte. IMPRESSION: Small plantar calcaneal enthesophyte. Electronically signed by: Valeria Kimbrough MD (03/01/2022 4:29 PM) [id number]
== END ==
LOC: RAD 11:57
PROVIDERS: ATTEND Nurse Practitioner Family
DX: M77.31 Calcaneal spur, right foot (principal)
CPT/HCPCS: 73650